=== PATIENT | female | born 1945 | race Caucasian/White ===

== ENCOUNTER → 2017-05-08 16:48 | Outpatient (CLI) | payer MEDICARE, SELFPAY ==
[2017-05-08 18:39] LABS: Absolute Lymphocyte Count 1.78 X10^3/ul (0.83-4.51); Absolute Neutrophil Count 2.7 X10^3/uL (2.0-7.7); Basophil# 0.01 X10^3/uL; Basophil% 0.2 % (0-1); Eosinophil# 0.13 X10^3/uL; Eosinophils% 2.5 % (0-5); Hemoglobin 11.9 g/dl (12.0-15.0); Lymphocyte # 1.78 X10^3/ul (4.0); Lymphocyte % 34.6 % (19-41); Mean Corp Hgb Conc 33.1 g/gl (32-36); Mean Corpuscular Hgb 29.1 pg (27.0-32.0); Mean Platelet Vol. 9.9 fl (6.2-12.0); Monocyte# 0.48 X10^3/uL; Monocyte% 9.3 % (0-10); Neutrophil # 2.74 X10^3/uL (2.7-7.7); Neutrophil % 53.2 % (47-70); Platelet Count 213 K/mm3 (150-450); RBC Distribution Width CV 13.9 % (11.6-14.6); RBC Distribution Width SD 43.8 fl (35.1-43.9); Red Blood Count 4.09 M/mm3 (4.2-5.4); White Blood Count 5.2 K/mm3 (4.4-11.0)
[2017-05-08 18:40] LABS: ALB/GLOB Ratio 0.9 RATIO (0.9-2.4); AST(SGOT) 23 U/L (15-37); Alanine Aminotransfer ALT/SGPT 27 U/L (13-56); Albumin, Serum 3.5 g/dL (3.2-5.0); Alkaline Phosphatase 71 U/L (45-117); Anion Gap 7 (5-15); BUN 24 mg/dL (7-18); BUN/Creat Ratio 21.8 RATIO (10-20); Calcium,Total 8.6 mg/dL (8.5-10.1); Chloride 107 mmol/L (98-107); EST Glomerular Filtration Rate 52 mL/min (>60); Est Glom Filt Rate - Afr Amer 63 mL/min (>60); Globulin 3.9 g/dL (2.2-4.2); Glucose 90 mg/dL (74-106); POSITIVE COUNT NO; POSITIVE DIFFERENTIAL NO; POSITIVE MORPHOLOGY NO; Potassium 4.2 mmol/L (3.5-5.1); Protein, Total 7.4 g/dL (6.4-8.2); Sodium Level 141 mmol/L (136-145)
== END ==
PROVIDERS: Family Provider Family Medicine; PCP Family Medicine; Visit Provider Internal Medicine Rheumatology
DX: M06.4 Inflammatory polyarthropathy (principal); R76.8 Other specified abnormal immunological findings in serum; M15.9 Polyosteoarthritis, unspecified; K21.9 Gastro-esophageal reflux disease without esophagitis; M50.30 Other cervical disc degeneration, unspecified cervical region; I10 Essential (primary) hypertension
CPT/HCPCS: 36415; 80053; 85025

== ENCOUNTER → 2017-08-01 09:54 | Outpatient (CLI) | payer MEDICARE, SELFPAY ==
[2017-08-01 11:40] LABS: ALB/GLOB Ratio 0.9 RATIO (0.9-2.4); AST(SGOT) 17 U/L (15-37); Alanine Aminotransfer ALT/SGPT 24 U/L (13-56); Albumin, Serum 3.5 g/dL (3.2-5.0); Alkaline Phosphatase 63 U/L (45-117); Anion Gap 8 (5-15); BUN 23 mg/dL (7-18); BUN/Creat Ratio 23.7 RATIO (10-20); Calcium,Total 8.9 mg/dL (8.5-10.1); Chloride 108 mmol/L (98-107); Cholesterol 161 mg/dL (200); Creatinine, Serum 0.97 mg/dL (0.55-1.02); EST Glomerular Filtration Rate 60 mL/min (>60); Est Glom Filt Rate - Afr Amer 73 mL/min (>60); Glucose 100 mg/dL (74-106); High Density Lipoprotein 64 mg/dL; Potassium 4.4 mmol/L (3.5-5.1); Protein, Total 7.5 g/dL (6.4-8.2); Sodium Level 142 mmol/L (136-145); Triglycerides 46 mg/dL; Very Low Density Lipoprotein 9 mg/dL (5-40)
[2017-08-02 13:58] LABS: Hep C Antibodies <0.1 s/co ratio (0.0-0.9)
== END ==
PROVIDERS: Family Provider Family Medicine; PCP Family Medicine; Visit Provider Family Medicine
DX: Z13.220 Encounter for screening for lipoid disorders (principal); Z11.59 Encounter for screening for other viral diseases; I10 Essential (primary) hypertension
CPT/HCPCS: 36415; 80053; 80061; 86803

== ENCOUNTER → 2017-08-10 16:48 | Outpatient (CLI) | payer MEDICARE, SELFPAY ==
[2017-08-10 17:32] LABS: Absolute Neutrophil Count 3.6 X10^3/uL (2.0-7.7); Basophil# 0.02 X10^3/uL; Basophil% 0.3 % (0-1); Eosinophils% 3.2 % (0-5); Hematocrit 35.6 % (37-47); Hemoglobin 11.9 g/dl (12.0-15.0); Lymphocyte % 29.1 % (19-41); Mean Corp Hgb Conc 33.4 g/gl (32-36); Mean Corpuscular Hgb 29.9 pg (27.0-32.0); Mean Corpuscular Volume 89.4 fL (81-99); Mean Platelet Vol. 9.9 fl (6.2-12.0); Monocyte# 0.52 X10^3/uL; Monocyte% 8.4 % (0-10); Neutrophil # 3.62 X10^3/uL (2.7-7.7); Neutrophil % 58.7 % (47-70); Platelet Count 238 K/mm3 (150-450); RBC Distribution Width CV 14.4 % (11.6-14.6); RBC Distribution Width SD 46.6 fl (35.1-43.9); Red Blood Count 3.98 M/mm3 (4.2-5.4); White Blood Count 6.2 K/mm3 (4.4-11.0)
[2017-08-10 17:40] LABS: POSITIVE COUNT NO; POSITIVE DIFFERENTIAL NO; POSITIVE MORPHOLOGY NO
[2017-08-10 17:56] LABS: ALB/GLOB Ratio 0.9 RATIO (0.9-2.4); AST(SGOT) 21 U/L (15-37); Alanine Aminotransfer ALT/SGPT 21 U/L (13-56); Albumin, Serum 3.5 g/dL (3.2-5.0); Alkaline Phosphatase 69 U/L (45-117); Anion Gap 7 (5-15); BUN 30 mg/dL (7-18); BUN/Creat Ratio 25.2 RATIO (10-20); Calcium,Total 8.7 mg/dL (8.5-10.1); Chloride 106 mmol/L (98-107); Creatinine, Serum 1.19 mg/dL (0.55-1.02); EST Glomerular Filtration Rate 48 mL/min (>60); Est Glom Filt Rate - Afr Amer 58 mL/min (>60); Globulin 3.9 g/dL (2.2-4.2); Glucose 95 mg/dL (74-106); Potassium 4.1 mmol/L (3.5-5.1); Protein, Total 7.4 g/dL (6.4-8.2); Sodium Level 139 mmol/L (136-145)
== END ==
PROVIDERS: Family Provider Family Medicine; PCP Family Medicine; Visit Provider Internal Medicine Rheumatology
DX: M06.4 Inflammatory polyarthropathy (principal); R76.8 Other specified abnormal immunological findings in serum; M15.9 Polyosteoarthritis, unspecified; K21.9 Gastro-esophageal reflux disease without esophagitis; M50.30 Other cervical disc degeneration, unspecified cervical region; I10 Essential (primary) hypertension
CPT/HCPCS: 36415; 80053; 85025

== ENCOUNTER → 2017-08-24 18:44 | Outpatient (CLI) | payer MEDICARE, SELFPAY | PROVIDERS: Visit Provider Physician Assistant | DX: J02.9 Acute pharyngitis, unspecified (principal) | CPT/HCPCS: 87081 ==

== ENCOUNTER → 2018-01-04 16:35 | Outpatient (CLI) | payer MEDICARE, SELFPAY ==
[2017-08-24 16:31] VITALS: BMI 45.6
[2018-01-04 17:48] LABS: ALB/GLOB Ratio 0.9 RATIO (0.9-2.4); AST(SGOT) 21 U/L (15-37); Alanine Aminotransfer ALT/SGPT 24 U/L (13-56); Albumin, Serum 3.6 g/dL (3.2-5.0); Alkaline Phosphatase 74 U/L (45-117); Anion Gap 9 (5-15); BUN 26 mg/dL (7-18); BUN/Creat Ratio 25.5 RATIO (10-20); Calcium,Total 8.5 mg/dL (8.5-10.1); Chloride 102 mmol/L (98-107); Creatinine, Serum 1.02 mg/dL (0.55-1.02); EST Glomerular Filtration Rate 57 mL/min (>60); Est Glom Filt Rate - Afr Amer 69 mL/min (>60); Globulin 3.9 g/dL (2.2-4.2); Glucose 95 mg/dL (74-106); Potassium 4.1 mmol/L (3.5-5.1); Protein, Total 7.5 g/dL (6.4-8.2); Sodium Level 139 mmol/L (136-145)
[2018-01-04 17:56] LABS: Absolute Lymphocyte Count 2.16 X10^3/ul (0.83-4.51); Absolute Neutrophil Count 3.5 X10^3/uL (2.0-7.7); Basophil# 0.03 X10^3/uL; Basophil% 0.5 % (0-1); Eosinophil# 0.18 X10^3/uL; Eosinophils% 2.8 % (0-5); Hematocrit 35.5 % (37-47); Hemoglobin 11.7 g/dl (12.0-15.0); Lymphocyte # 2.16 X10^3/ul (4.0); Lymphocyte % 34.1 % (19-41); Mean Corpuscular Hgb 29.7 pg (27.0-32.0); Mean Corpuscular Volume 90.1 fL (81-99); Mean Platelet Vol. 9.9 fl (6.2-12.0); Monocyte# 0.46 X10^3/uL; Monocyte% 7.3 % (0-10); Neutrophil # 3.49 X10^3/uL (2.7-7.7); Platelet Count 226 K/mm3 (150-450); RBC Distribution Width CV 13.6 % (11.6-14.6); RBC Distribution Width SD 44.3 fl (35.1-43.9); Red Blood Count 3.94 M/mm3 (4.2-5.4); White Blood Count 6.3 K/mm3 (4.4-11.0)
[2018-01-04 18:23] LABS: POSITIVE COUNT NO; POSITIVE DIFFERENTIAL NO; POSITIVE MORPHOLOGY NO
== END ==
PROVIDERS: Family Provider Family Medicine; PCP Family Medicine; Referring Provider Internal Medicine Rheumatology; Visit Provider Internal Medicine Rheumatology
DX: M06.4 Inflammatory polyarthropathy (principal); R76.8 Other specified abnormal immunological findings in serum; M15.9 Polyosteoarthritis, unspecified; M25.512 Pain in left shoulder; K21.9 Gastro-esophageal reflux disease without esophagitis; M50.30 Other cervical disc degeneration, unspecified cervical region; I10 Essential (primary) hypertension
CPT/HCPCS: 36415; 80053; 85025

== ENCOUNTER → 2018-01-06 16:37 | Outpatient (CLI) | payer MEDICARE, SELFPAY ==
[2017-08-24 16:31] VITALS: BMI 45.6
[2018-01-06 17:29] LABS: Color, Urine Yellow (Yellow); Glucose, Dipstick Normal (Normal); Ketone-Dipstick Negative (Negative); Leukocyte Esterase-Dipstick Negative /ul (Negative); Nitrite-Dipstick Negative (Negative); Occult Blood-Urine Negative /ul (Negative); Protein-Dipstick Negative (Negative); Specific Gravity, Urine 1.015 (1.002-1.030); Urine Bilirubin Dipstick Negative (Negative); Urine Clarity Clear (Clear); Urine Urobilinogen Normal (Normal)
[2018-01-06 17:57] LABS: Protein, Urine (Random) 7.7 mg/dL (<11.9); Protein:Creat Ratio 155 mg/g CRE (0-200)
== END ==
PROVIDERS: Family Provider Family Medicine; PCP Family Medicine; Referring Provider Internal Medicine Rheumatology; Visit Provider Internal Medicine Rheumatology
DX: M06.4 Inflammatory polyarthropathy (principal); R76.8 Other specified abnormal immunological findings in serum; M25.512 Pain in left shoulder; K21.9 Gastro-esophageal reflux disease without esophagitis; M50.30 Other cervical disc degeneration, unspecified cervical region; I10 Essential (primary) hypertension
CPT/HCPCS: 81002; 82570; 84156

== ENCOUNTER → 2018-01-25 15:46 | Outpatient (CLI) | payer MEDICARE, SELFPAY ==
[2017-08-24 16:31] VITALS: BMI 45.6
--- NOTE | 2018-01-25 15:48 | BI_ITS ---
MAMMOGRAPHY - BILATERAL SCREENING REASON FOR EXAM: Female, 72 years old. Routine annual screening examination. PERTINENT HISTORY: Non-contributory. History of bilateral breast reduction surgery and implants. TECHNIQUE: Digital bilateral breast nicholas (3D mammographic acquisition) in the CC and MLO projections. 2-D mediolateral oblique (MLO) and craniocaudad (CC) views of both breasts were obtained. CAD: Full Field Digital Mammography with Computer Added Detection was performed. COMPARISON: Comparison is made with prior study dated April 10, 2016 and July 07, 2014. FINDINGS: Breast Composition: The breasts are almost entirely fatty. There are no dominant masses or suspicious calcifications. There is also evidence of stable shrinkage of the right breast implant. Stable appearance of the bilateral breast implants. Once again, there is deformity with shrinkage of the left breast implant with nodular appearance along its inferior medial aspect suggestive of rupture. No other significant abnormalities are identified. There has been no significant change since the prior study. BI/SCREENING MAMM (CAD), BILAT IMPRESSION: Stable bilateral screening mammogram. Yearly follow-up mammogram recommended. (A) ASSESSMENT CATEGORY: BIRADS Category 2: Benign. A letter regarding these results will be sent to the patient by the facility within 30 days. Approximately 10% of breast cancers are not detected by mammography. A normal mammogram should not delay biopsy of a clinically suspicious abnormality. [id number] Electronically Signed: Juwan Morgan MD at 9:04 EST Tel [phone], Service support ,
--- OUTSIDE RECORDS SUMMARY | 2018-03-14 00:48 | XMS RPT_ITS ---
:1945 Author Organization [place] Support Name Relationship Address Phone RC GEE Unavailable [address] + [place] [address] + [place] [address] R Unavailable Unavailable Unavailable GEERC Unavailable [address] + [place] [address] KARLA HUNTLEY Unavailable LESLIE [address]ALES + [place] [address] R Unavailable Unavailable Unavailable GEEDARIANARC Unavailable [address] + [place] [address] KARLA HUNTLEY Unavailable LESLIE ROSALES + [place] [address] R Unavailable Unavailable Unavailable GEE RC Unavailable [address] + [place] [address] KARLA HUNTLEY Unavailable LESLIE ROSALES + [place] [address] R Unavailable Unavailable Unavailable GEE RC Unavailable [address] + [place] [address] KARLA HUNTLEY Unavailable LESLIE ROSALES + [place] [address] R Unavailable Unavailable Unavailable GEE RC Unavailable [address] + [place] [address] KARLA HUNTLEY Unavailable LESLIE ROSALES + [place] [address] R Unavailable Unavailable Unavailable GEE RC Unavailable [address] + [place] [address] KARLA HUNTLEY Unavailable LESLIE ROSALES + [place] [address] R Unavailable Unavailable Unavailable GEE, RC Unavailable [address] + [place] [address] KARLA HUNTLEY Unavailable LESLIE ROSALES + [place] [address] R Unavailable Unavailable Unavailable GEE, RC Unavailable [address] + [place] [address] KARLA HUNTLEY Unavailable LESLIE ROSALES + [place] [address] R Unavailable Unavailable Unavailable Care Team Providers Name Role Phone Chalino Samuels Attending Unavailable Jonathan Adame Attending Unavailable Brown, Fidel Referring Unavailable Brown, Fidel Primary Care Unavailable Vellanki, Sophia Attending Unavailable Vellanki, Sophia Referring Unavailable Brown, Fidel Primary Care Unavailable Chalino Samuels Attending Unavailable Chalino Samuels Referring Unavailable Brown, Fidel Primary Care Unavailable Vellanki, Sophia Attending Unavailable [place]ell[place], Sophia Referring Unavailable Brown, Fidel Primary Care Unavailable Jonathan Adame Attending Unavailable Brown, Fidel Referring Unavailable Brown, Fidel Primary Care Unavailable Jonathan Adame Attending Unavailable Brown, Fidel Primary Care Unavailable Jonathan Adame Referring Unavailable Vellanki, Sophia Attending Unavailable [place], Sophia Referring Unavailable Chalino Samuels Primary Care Unavailable [place]ell[place], Sophia Attending Unavailable [place]ell[place], Sophia Referring Unavailable Chalino Samuels Primary Care Unavailable PROBLEMS PROBLEMS DATE TYPE CONDITION / CODE ATTENDING STATUS SOURCE 01/04/2018 Unknown I10 - Essential [place], Sophia Active [place] (primary) Community hypertension / Hospital I10(ICD-10) Repository 01/04/2018 Unknown M06.4 - Inflammatory Vellanki, 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 / Community M06.4(ICD-10) Hospital Repository 01/04/2018 Unknown R76.8 - Other Vellanki, Sophia Active [place] specified abnormal Community immunological Hospital findings in serum / Repository R76.8(ICD-10) 01/04/2018 Unknown M15.9 - Vellanki, 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, Community unspecified / Hospital M15.9(ICD-10) Repository 01/04/2018 Unknown K21.9 - Vellanki, Sophia Active [place] Gastro-esophageal [facility] reflux disease Hospital without esophagitis / Repository K21.9(ICD-10) 01/04/2018 Unknown M50.30 - Other Sophia Avalos Active [place] cervical disc Community degeneration, Hospital unspecified cervical Repository region / M50.30(ICD-10) 01/04/2018 Unknown M25.512 - Pain in Sophia Avalos Active [place] left shoulder / Community M25.512(ICD-10) Hospital Repository 09/29/2017 Unknown J02.9 - Acute Jonathan Adame Active [place] pharyngitis, [facility] unspecified / Hospital J02.9(ICD-10) Repository 08/01/2017 Unknown Z13.220 - Encounter Arvind Chelo [place] for screening for [facility] lipoid disorders / Hospital Z13.220(ICD-10) Repository 04/20/2017 Unknown R30.0 - Dysuria / Jonathan Adame Active [place] R30.0(ICD-10) [facility] Repository PROCEDURES PROCEDURES No Procedure Records FoundRESULTS RESULTS SCREENING MAMM (CAD), Observed: 01/25/2018 Status: F Source: [place] B[place] 3:49 PM [facility] [address] [place] [address] SCREENING MAMM (CAD), BILAT MR#: [id number] Acct: [id number] Name: SANGITA GEE Rep #: [id number] : 1945 F 72 From: Juwan Morgan MD PCP: Fidel Martinez DO Status: REG CLI Study: SCREENING MAMM (CAD), BILAT Date of Exam: 01/25/18 Exam# [id number] Ordering Dr: Chalino Samuels DO MAMMOGRAPHY - BILATERAL SCREENING REASON FOR EXAM: Female, 72 years old. Routine annual screening examination. PERTINENT HISTORY: Non-contributory. History of bilateral breast reduction surgery and implants. TECHNIQUE: Digital bilateral breast nicholas (3D mammographic acquisition) in the CC and MLO projections. 2-D mediolateral oblique (MLO) and craniocaudad (CC) views of both breasts were obtained. CAD: Full Field Digital Mammography with Computer Added Detection was performed. COMPARISON: Comparison is made with prior study dated April 10, 2016 and July 07, 2014. FINDINGS: Breast Composition: The breasts are almost entirely fatty. There are no dominant masses or suspicious calcifications. There is also evidence of stable shrinkage of the right breast implant. Stable appearance of the bilateral breast implants. Once again, there is deformity with shrinkage of the left breast implant with nodular appearance along its inferior medial aspect suggestive of rupture. No other significant abnormalities are identified. There has been no significant change since the prior study. BI/SCREENING MAMM (CAD), BILAT IMPRESSION: Stable bilateral screening mammogram. Yearly follow-up mammogram recommended. (A) ASSESSMENT CATEGORY: BIRADS Category 2: Benign. A letter regarding these results will be sent to the patient by the facility within 30 days. Approximately 10% of breast cancers are not detected by mammography. A normal mammogram should not delay biopsy of a clinically suspicious abnormality. [id number] Electronically Signed: Juwan Morgan MD at 9:04 EST Tel [phone], Service support , CC: Chalino Samuels DO; Fidel Martinez DO [employer]: Signed URINALYSIS, ROUTINE Collected: 01/06/2018 Status: F Source: [place] (DIPSTICK) 4:39 PM [facility] Order Comment: How was Urine Obtained? CLEAN CATCH TYPE CODE TESTS RESULT OUT OF RANGE REFERENCE UNITS LAB L400.3000 Yellow COLOR Normal Yellow LAB L400.3050 Clear Normal CLARITY Clear LAB L400.3200 Normal mg/dl Normal GLUCOSE, UR Normal LAB L400.3300 Negative mg/dL Normal BILIRUBIN URINE Negative LAB L400.3400 Negative mg/dl Normal KETONE UR Negative LAB L400.3465 1.002-1.030 Normal SP.GR. DIPSTX 1.015 LAB L400.3550 5.0 - 8.0 pH UR Normal 5.0 LAB L400.3600 Negative mg/dl PROT Normal DIPSTX Negative LAB L400.3700 Normal mg/dl Normal UROBILI Normal LAB L400.3750 Negative Normal NITRITE UR Negative LAB L400.3780 Negative /ul Normal OCCULT BLOOD-UR Negative LAB L400.3800 Negative /ul LEUK Normal ESTERASE Negative Performed By: #### L400.2010 #### [facility] [address] [facility] [place], [address] PROTEIN+CREATININE Collected: Status: F Source: [place] RATIO,URINE 01/06/2018 4:39 PM [facility] TYPE CODE TESTS RESULT OUT OF RANGE REFERENCE UNITS LAB L501.1200 NO RANGE EST. mg/dL Normal UR CREAT 49.80 LAB L501.1930 <11.9 mg/dL Normal 7.7 PROTEIN,UR.R AN. LAB L501.1940 0-200 mg/g CRE Normal PROT:CRE 155 RATIO Performed By: #### L501.0900 #### [facility] [address] [facility] [facility] [place], [address] COMPREHENSIVE METABOLIC Collected: 01/04/2018 Status: F Source: [place] PROFIL 4:43 PM [facility] TYPE CODE TESTS RESULT OUT OF RANGE REFERENCE UNITS LAB L501.0100 74-106 mg/dL Normal GLU 95 Result Comment: Please note revised GLUCOSE reference range effective 2017. LAB L501.1000 7-18 mg/dL High BUN 26 LAB L501.1100 0.55-1.02 mg/dL Normal CREAT,SERUM 1.02 Result Comment: The validity of the calculated GFR AND GFRAA in patients over 70 years has not been determined. Clinical correlation is essential. LAB L501.1110 >60 mL/min Low EST GFR 57 Result Comment: Non- GFR Calc LAB L501.1115 >60 mL/min Normal EST GFR - AA 69 Result Comment: GFR Calc LAB L501.1300 10-20 RATIO High BUN/CRE 25.5 LAB L501.1500 6.4-8.2 g/dL T Normal PROT 7.5 LAB L501.1800 3.2-5.0 g/dL Normal ALB 3.6 LAB L501.1950 2.2-4.2 g/dL Normal GLOB 3.9 LAB L501.2000 0.9-2.4 RATIO Normal A/G 0.9 LAB L501.2200 8.5-10.1 mg/dL CA Normal 8.5 LAB L501.4100 15-37 U/L Normal AST 21 LAB L501.4305 45-117 U/L Normal ALK P 74 LAB L501.4405 13-56 U/L Normal ALT 24 LAB L501.4600 0.20-1.00 mg/dL T Normal BILI 0.30 LAB L501.5300 136-145 mmol/L NA Normal 139 LAB L501.5600 3.5-5.1 mmol/L K Normal 4.1 LAB L501.5900 98-107 mmol/L CL Normal 102 LAB L501.6100 21.0-32.0 mmol/L Normal CO2 28.0 LAB L501.6200 5-15 Normal GAP 9 Performed By: #### L500.4050 #### [facility] [address], [address] CBC W/DIFF, AUTOMATED Collected: 01/04/2018 Status: F Source: [place] 4:43 PM [facility] TYPE CODE TESTS RESULT OUT OF RANGE REFERENCE UNITS LAB L100.1000 4.4-11.0 K/mm3 Normal WBC 6.3 LAB L100.1200 4.2-5.4 M/mm3 Low RBC 3.94 LAB L100.1300 12.0-15.0 g/dl Low HGB 11.7 LAB L100.1400 37-47 % Low HCT 35.5 LAB L100.1500 81-99 fL Normal MCV 90.1 LAB L100.1600 27.0-32.0 pg Normal MCH 29.7 LAB L100.1700 32-36 g/gl Normal MCHC 33.0 LAB L100.1810 11.6-14.6 % Normal RDW CV 13.6 LAB L100.1820 35.1-43.9 fl High RDW SD 44.3 LAB L100.1900 150-450 K/mm3 Normal PLT 226 LAB L100.2000 6.2-12.0 fl Normal MPV 9.9 LAB L100.2100 47-70 % Normal NEUT% 55.0 LAB L100.2200 19-41 % Normal LY% 34.1 LAB L100.2300 0-10 % Normal MONO% 7.3 LAB L100.2400 0-5 % Normal EO% 2.8 LAB L100.2500 0-1 % Normal BASO% 0.5 LAB L100.2550 0.0-0.9 % Normal IM GRAN % 0.300 Result Comment: IG% - Immature Granulocytes (promyelocytes, myelocytes and metamyelocytes) > 1% indicates that a LEFT SHIFT is Present. LAB L100.2620 2.0-7.7 X10 3/uL Normal Absolute Neut 3.5 LAB L100.2720 0.83-4.51 X10 3/ul Normal Absolute Lymph 2.16 Performed By: #### L100.0100 #### [facility] [address] [facility] [address] [place], [place], [address] Observed: 08/24/2017 Status: F Source: [place] CULTURE, R/O STREP A 6:45 PM [facility] DAPHNIE Culture No Group A Beta Streptococcus isolated. * This cultures intended use is to screen for Beta Streptococcus A only. All other pathogens and potential pathogens will not be screened for or reported. If a complete workup of all potential pathogens is indicated an order for a routine throat culture is required. Performed By: #### M100.010 #### [facility] [address] 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 Accompanied by: Allergies No Known Allergies Allergy (Verified 04/20/17 16:33) Medications hydroxychloroquine 200 mg tablet PO 30 Days #60 04/20/17 [History Confirmed 04/20/17] lisinopril 20 mg-hydrochlorothiazide 25 mg tablet PO 90 Days #90 04/20/17 [History Confirmed 04/20/17] PFSH Medical History Arthritis (Acute) Back pain (Acute) Difficulty balancing (Acute) Knee pain (Acute) SOB (shortness of breath) (Acute) Shoulder pain (Acute) Surgical History Carpal tunnel syndrome (Acute) History of hernia repair (Acute) History of hysterectomy (Acute) History of knee surgery (Acute) Hx of section (Acute) Family History Father Kidney disease Myocardial infarction Mother Cancer Social History Smoking Status: Never smoker alcohol intake: never HPI HPI Chief Complaint: Sore throat Details: SANGITA GEE, is a 72 F who presents to the office today for initial evaluation 2 day history of progressively worsening sore throat. Patient notes tenderness to swallow, though no difficulty with swallowing or drooling appreciated. Patient notes no complaints of fever, chills, sweats, rash, chest pain/shortness of breath, or cough. She is a non-smoker, noting no other members in her household with similar signs or symptoms. She notes no other associated symptoms and no other alleviating or aggravating factors. ROS Const Constitutional: No excessive sweating, chills, fever(s), night sweats or body ache Eyes Eyes: No change in vision ENT ENT: Positive for post nasal drip, sinus pressure and sore throat; no abnormal hearing, ear pain, ear discharge, ear pressure, hearing loss, tongue swelling, throat swelling or lip swelling Resp Respiratory: No cough, chest congestion or shortness of breath Cardio Cardiology: No excessive sweating, chest pain at rest, chest pain with exertion, shortness of breath, dyspnea on exertion, irregular heart rhythm, generalized swelling or leg pain with exertion Gastro GI: No abdominal pain, change in stool character, change in bowel habits, nausea/dyspepsia or vomiting Musc Musculoskeletal: No joint pain, back pain or limited range of motion Skin Skin: No rash Neuro Neurology: No abnormal hearing, abnormal speech or abnormal movements Endo Endocrine: No excessive sweating Aller/Imm Allergy/Immunologic: No tongue swelling, throat swelling or lip swelling Exam Const General: cooperative, healthy appearing, no acute distress, comfortable Nutritional Appearance: obese Orientation: alert, awake, oriented x3 HENMT Head: normal to inspection Ears: hearing grossly normal bilaterally, external ears normal, TM's normal bilaterally, EAC's normal Nose: external nose normal, nares normal, septum normal, no nasal discharge Face and sinus: normal facial exam, sinuses nontender, face symmetric Mouth: oral mucosae normal, lip normal, oropharynx normal, tongue normal Teeth and gingiva: gingiva normal, dentition normal Throat: uvula midline, posterior oropharynx normal, abnormal tonsil (Erythema; rapid strep test today negative) bilaterally, no postnasal drainage Eyes General: appearance normal, both eyes and all related structures Neck Neck: normal visual inspection, full ROM, no lymphadenopathy, no meningeal signs, supple Neck mass: No Thyroid: thyroid normal Lymphatic: no lymphadenopathy noted Chest Chest palpation AND inspection: normal inspection of the chest Resp Effort AND Inspection: normal respiratory effort, able to speak in complete sentences, symmetric chest movement, no cough Auscultation: Bilateral: Clear to Auscultation Cardio Palpation: normal PMI Rate: regular rate Rhythm: regular rhythm Heart Sounds: S1 normal, S2 normal, no gallops, no murmurs, no rubs Pulses: radial pulses present GI Inspection: normal to inspection Palpation: soft Skin General: no rashes or lesions noted Neuro General: alert, awake, oriented x3, gait normal Cognition: normal cognition Speech: speech normal Gait: normal gait Motor: muscle tone normal throughout Sensory Exam: no sensory deficits noted Psych Appearance: grossly normal Mental Status: mental status grossly normal Mood: congruent mood Affect: normal affect Speech and Movement: speech and movement normal Attitude: cooperative Thought Process: normal Thought Content: normal Judgment: judgment good Assessment AND Plan 1. Sore throat J02.9 Orders Orders: 2. Pharyngitis J02.9 Plan Clear fluids, rest, Advil/Tylenol, salt water gargles as needed for symptomatic relief. Patient aware today's rapid strep test was negative therefore culture sent out for further evaluation. Follow-up with PCP in 5-7 days should symptoms not improved, sooner should symptoms worsen or any other concerns develop. Patient states acknowledging understanding all the above. This note was generated with Userscoutation software. It may contain incorrect words, spelling, and punctuation that were not noted in checking the note before signing. Orders Orders: Coding Level of Care Code Off vis,est,level 3 Diagnoses Sore throat J02.9 Pharyngitis J02.9 08/24/17 0751 <Electronically signed by Jonathan QUINONEZ> Date Jonathan QUINONEZ Cosigner Signature: Date (if applicable) CC: CBC W/DIFF, AUTOMATED Collected: 08/10/2017 Status: F Source: [place] 4:55 PM [facility] TYPE CODE TESTS RESULT OUT OF RANGE REFERENCE UNITS LAB L100.1000 4.4-11.0 K/mm3 Normal WBC 6.2 LAB L100.1200 4.2-5.4 M/mm3 Low RBC 3.98 LAB L100.1300 12.0-15.0 g/dl Low HGB 11.9 LAB L100.1400 37-47 % Low HCT 35.6 LAB L100.1500 81-99 fL Normal MCV 89.4 LAB L100.1600 27.0-32.0 pg Normal MCH 29.9 LAB L100.1700 32-36 g/gl Normal MCHC 33.4 LAB L100.1810 11.6-14.6 % Normal RDW CV 14.4 LAB L100.1820 35.1-43.9 fl High RDW SD 46.6 LAB L100.1900 150-450 K/mm3 Normal PLT 238 LAB L100.2000 6.2-12.0 fl Normal MPV 9.9 LAB L100.2100 47-70 % Normal NEUT% 58.7 LAB L100.2200 19-41 % Normal LY% 29.1 LAB L100.2300 0-10 % Normal MONO% 8.4 LAB L100.2400 0-5 % Normal EO% 3.2 LAB L100.2500 0-1 % Normal BASO% 0.3 LAB L100.2550 0.0-0.9 % Normal IM GRAN % 0.300 Result Comment: IG% - Immature Granulocytes (promyelocytes, myelocytes and metamyelocytes) > 1% indicates that a LEFT SHIFT is Present. LAB L100.2620 2.0-7.7 X10 3/uL Normal Absolute Neut 3.6 LAB L100.2720 0.83-4.51 X10 3/ul Normal Absolute Lymph 1.80 Performed By: #### L100.0100 #### [facility] [address] [place], [address] COMPREHENSIVE METABOLIC Collected: 08/10/2017 Status: F [facility] TYPE CODE TESTS RESULT OUT OF RANGE REFERENCE UNITS LAB L501.0100 74-106 mg/dL Normal GLU 95 Result Comment: Please note revised GLUCOSE reference range effective 2017. LAB L501.1000 7-18 mg/dL High BUN 30 LAB L501.1100 0.55-1.02 mg/dL High CREAT,SERUM 1.19 Result Comment: The validity of the calculated GFR AND GFRAA in patients over 70 years has not been determined. Clinical correlation is essential. LAB L501.1110 >60 mL/min Low EST GFR 48 Result Comment: Non- GFR Calc LAB L501.1115 >60 mL/min Low EST GFR - AA 58 Result Comment: GFR Calc LAB L501.1300 10-20 RATIO High BUN/CRE 25.2 LAB L501.1500 6.4-8.2 g/dL T Normal PROT 7.4 LAB L501.1800 3.2-5.0 g/dL Normal ALB 3.5 LAB L501.1950 2.2-4.2 g/dL Normal GLOB 3.9 LAB L501.2000 0.9-2.4 RATIO Normal A/G 0.9 LAB L501.2200 8.5-10.1 mg/dL CA Normal 8.7 LAB L501.4100 15-37 U/L Normal AST 21 LAB L501.4305 45-117 U/L Normal ALK P 69 LAB L501.4405 13-56 U/L Normal ALT 21 LAB L501.4600 0.20-1.00 mg/dL T Normal BILI 0.30 LAB L501.5300 136-145 mmol/L NA Normal 139 LAB L501.5600 3.5-5.1 mmol/L K Normal 4.1 LAB L501.5900 98-107 mmol/L CL Normal 106 LAB L501.6100 21.0-32.0 mmol/L Normal CO2 26.0 LAB L501.6200 5-15 Normal GAP 7 Performed By: #### L500.4050 #### [facility] [address] [place], [address] COMPREHENSIVE METABOLIC Collected: 08/01/2017 Status: F Source: [place] [facility] 10:24 AM [facility] TYPE CODE TESTS RESULT OUT OF RANGE REFERENCE UNITS LAB L501.0100 74-106 mg/dL Normal GLU 100 Result Comment: Fasting Glucose result from 100 to 125 mg/dL suggests IMPAIRED HOMEOSTASIS per A.D.A. criteria. Please note revised GLUCOSE reference range effective 2017. LAB L501.1000 7-18 mg/dL High BUN 23 LAB L501.1100 0.55-1.02 mg/dL Normal CREAT,SERUM 0.97 Result Comment: The validity of the calculated GFR AND GFRAA in patients over 70 years has not been determined. Clinical correlation is essential. LAB L501.1110 >60 mL/min Normal EST GFR 60 Result Comment: Non- GFR Calc LAB L501.1115 >60 mL/min Normal EST GFR - AA 73 Result Comment: GFR Calc LAB L501.1300 10-20 RATIO High BUN/CRE 23.7 LAB L501.1500 6.4-8.2 g/dL T Normal PROT 7.5 LAB L501.1800 3.2-5.0 g/dL Normal ALB 3.5 LAB L501.1950 2.2-4.2 g/dL Normal GLOB 4.0 LAB L501.2000 0.9-2.4 RATIO Normal A/G 0.9 LAB L501.2200 8.5-10.1 mg/dL CA Normal 8.9 LAB L501.4100 15-37 U/L Normal AST 17 LAB L501.4305 45-117 U/L Normal ALK P 63 LAB L501.4405 13-56 U/L Normal ALT 24 LAB L501.4600 0.20-1.00 mg/dL T Normal BILI 0.60 LAB L501.5300 136-145 mmol/L NA Normal 142 LAB L501.5600 3.5-5.1 mmol/L K Normal 4.4 LAB L501.5900 98-107 mmol/L High CL 108 LAB L501.6100 21.0-32.0 mmol/L Normal CO2 26.0 LAB L501.6200 5-15 Normal GAP 8 Performed By: #### L500.4050, L500.4100 #### [facility] [address] [place], [place], [address] LIPID PROFILE Collected: 08/01/2017 Status: F Source: [place] 10:24 AM [facility] TYPE CODE TESTS RESULT OUT OF RANGE REFERENCE UNITS LAB L501.4900 200 mg/dL Normal CHOL 161 Result Comment: <200 mg/dL Desirable 200-240 mg/dL Borderline >240 mg/dL High Risk LAB L501.5000 mg/dL Normal TRIG 46 Result Comment: The drugs N-Acetylcysteine and Metamizole may falsely depress this assay. Serum Triglycerides Reference Interval Normal <150 mg/dL Borderline high 150 - 199 mg/dL High 200 - 499 mg/dL Very High > or = 500 mg/dL LAB L501.6400 mg/dL Normal HDL 64 Result Comment: The drugs N-Acetylcysteine and Metamizole may falsely depress this assay. Reference Range HDL <40 mg/dL Low HDL Cholesterol HDL >or= 60 mg/dL High HDL Cholesterol LAB L501.6500 0-130 mg/dL Normal LDL 88 LAB L501.6600 5-40 mg/dL Normal VLDL 9 Performed By: #### L500.4050, L500.4100 #### [facility] [address] [place], [place], [address] HEPATITIS C ANTIBODIES Collected: 08/01/2017 Status: F Source: [place] 10:24 AM [facility] TYPE CODE TESTS RESULT OUT OF RANGE REFERENCE UNITS LAB L3100.0650 0.0-0.9 s/co ratio Normal HEP C AB <0.1 Result Comment: Negative: < 0.8 Indeterminate: 0.8 - 0.9 Positive: > 0.9 The CDC recommends that a positive HCV antibody result be followed up with a HCV Nucleic Acid Amplification test (581431). Performed at: - [facility] [address] [id number] Tram Driver: Pastor Preston PhD, Phone: [phone] Performed By: #### L3100.0625 #### [facility] (refer to report for specific site) refer to report for address and phone number CBC W/DIFF, AUTOMATED Collected: 05/08/2017 Status: F Source: [place] 4:54 PM [facility] TYPE CODE TESTS RESULT OUT OF RANGE REFERENCE UNITS LAB L100.1000 4.4-11.0 K/mm3 Normal WBC 5.2 LAB L100.1200 4.2-5.4 M/mm3 Low RBC 4.09 LAB L100.1300 12.0-15.0 g/dl Low HGB 11.9 LAB L100.1400 37-47 % Low HCT 36.0 LAB L100.1500 81-99 fL Normal MCV 88.0 LAB L100.1600 27.0-32.0 pg Normal MCH 29.1 LAB L100.1700 32-36 g/gl Normal MCHC 33.1 LAB L100.1810 11.6-14.6 % Normal RDW CV 13.9 LAB L100.1820 35.1-43.9 fl Normal RDW SD 43.8 LAB L100.1900 150-450 K/mm3 Normal PLT 213 LAB L100.2000 6.2-12.0 fl Normal MPV 9.9 LAB L100.2100 47-70 % Normal NEUT% 53.2 LAB L100.2200 19-41 % Normal LY% 34.6 LAB L100.2300 0-10 % Normal MONO% 9.3 LAB L100.2400 0-5 % Normal EO% 2.5 LAB L100.2500 0-1 % Normal BASO% 0.2 LAB L100.2550 0.0-0.9 % Normal IM GRAN % 0.200 Result Comment: IG% - Immature Granulocytes (promyelocytes, myelocytes and metamyelocytes) > 1% indicates that a LEFT SHIFT is Present. LAB L100.2620 2.0-7.7 X10 3/uL Normal Absolute Neut 2.7 LAB L100.2720 0.83-4.51 X10 3/ul Normal Absolute Lymph 1.78 Performed By: #### L100.0100 #### [facility] [address] [place], [place], [address] COMPREHENSIVE METABOLIC Collected: 05/08/2017 Status: F Source: [place] 4:54 PM [facility] TYPE CODE TESTS RESULT OUT OF RANGE REFERENCE UNITS LAB L501.0100 74-106 mg/dL Normal GLU 90 Result Comment: Please note revised GLUCOSE reference range effective 2017. LAB L501.1000 7-18 mg/dL High BUN 24 LAB L501.1100 0.55-1.02 mg/dL High CREAT,SERUM 1.10 Result Comment: The validity of the calculated GFR AND GFRAA in patients over 70 years has not been determined. Clinical correlation is essential. LAB L501.1110 >60 mL/min Low EST GFR 52 Result Comment: Non- GFR Calc LAB L501.1115 >60 mL/min Normal EST GFR - AA 63 Result Comment: GFR Calc LAB L501.1300 10-20 RATIO High BUN/CRE 21.8 LAB L501.1500 6.4-8.2 g/dL T Normal PROT 7.4 LAB L501.1800 3.2-5.0 g/dL Normal ALB 3.5 LAB L501.1950 2.2-4.2 g/dL Normal GLOB 3.9 LAB L501.2000 0.9-2.4 RATIO Normal A/G 0.9 LAB L501.2200 8.5-10.1 mg/dL CA Normal 8.6 LAB L501.4100 15-37 U/L Normal AST 23 LAB L501.4305 45-117 U/L Normal ALK P 71 LAB L501.4405 13-56 U/L Normal ALT 27 Result Comment: Please note revised ALT reference range effective 2017. LAB L501.4600 0.20-1.00 mg/dL Normal T BILI 0.30 LAB L501.5300 136-145 mmol/L Normal NA 141 LAB L501.5600 3.5-5.1 mmol/L Normal K 4.2 LAB L501.5900 98-107 mmol/L Normal CL 107 LAB L501.6100 21.0-32.0 mmol/L Normal CO2 27.0 LAB L501.6200 5-15 Normal GAP 7 Performed By: #### L500.4050 #### [facility] [address] [place], [place], [address] URGENT CARE VISIT Observed: 04/20/2017 Status: F Source: VY REPORT 4:56 PM [facility] [address] [place] [address] [address] [place] [address] OFFICE VISIT Date of Service: 04/20/17 MR#: [id number] Acct: [id number] Name: SANGITA GEE Rep #: [id number] : 1945 Provider: Jonathan QUINONEZ Age/Sex: 71/F Location: [facility] Status: Signed Intake Vital Signs04/20/17 Height 5 ft Intake Visit Reasons: Urinary tract infection Chief Complaint: Dysuria, urinary frequency Is patient in pain?: No Allergies No Known Allergies Allergy (Verified 04/20/17 16:33) Medications hydroxychloroquine 200 mg tablet PO 30 Days #60 04/20/17 [History Confirmed 04/20/17] lisinopril 20 mg-hydrochlorothiazide 25 mg tablet PO 90 Days #90 04/20/17 [History Confirmed 04/20/17] nitrofurantoin monohydrate/macrocrystals 100 mg capsule 100 mg PO Q12H 5 Days #10 cap 04/20/17 [Rx Confirmed 04/20/17] PFSH Medical History Arthritis (Acute) Back pain (Acute) Difficulty balancing (Acute) Knee pain (Acute) SOB (shortness of breath) (Acute) Shoulder pain (Acute) Surgical History Carpal tunnel syndrome (Acute) History of hernia repair (Acute) History of hysterectomy (Acute) History of knee surgery (Acute) Hx of section (Acute) Family History Father Kidney disease Myocardial infarction Mother Cancer Social History Smoking Status: Never smoker alcohol intake: never HPI HPI Chief Complaint: Dysuria, urinary frequency Details: SANGITA GEE, is a 71 F who presents to the office today for initial evaluation approximately 1 week history of progressively worsening dysuria and urinary frequency. Patient notes no complaints of fever, chills, sweats, or back pain. She notes taking [id number] Azo for symptomatic relief which helps somewhat. She notes having a urinary tract infection last in 2014, recalling that she was prescribed Macrobid at that time which helped her significantly. She notes no other complaints at this time. ROS Const Constitutional: No chills, fever(s), night sweats, body ache, abnormal sleep pattern or excessive sweating Eyes Eyes: No change in vision ENT ENT: No ear pain Resp Respiratory: No shortness of breath Cardio Cardiology: No excessive sweating, chest pain at rest, chest pain with exertion, shortness of breath, dyspnea on exertion, irregular heart rhythm, generalized swelling or leg pain with exertion Gastro GI: No abdominal pain, change in stool character or change in bowel habits Genitourinary-Female: Positive for burning urination, urinary frequency and painful urination; no urinary urgency, urinary incontinence, difficulty urinating or blood in urine Musc Musculoskeletal: No joint pain, back pain or limited range of motion Skin Skin: No change in hair or sores Neuro Neurology: No abnormal speech or abnormal movements Psych Psychiatric: No abnormal sleep pattern Endo Endocrine: No change in body appearance, cold intolerance, heat intolerance or excessive sweating Aller/Imm Allergy/Immunologic: No food intolerance Alex/Lymp Hematologic/Lymphatic: No easy bruising Exam Const General: cooperative, healthy appearing, no acute distress Nutritional Appearance: average body habitus, obese Orientation: alert, awake, oriented x3 HENMT Head: normal to inspection Ears: hearing grossly normal bilaterally Nose: external nose normal Eyes General: appearance normal, both eyes and all related structures Neck Neck: normal visual inspection, full ROM Lymphatic: no lymphadenopathy noted Chest Chest palpation AND inspection: normal inspection of the chest Resp Effort AND Inspection: normal respiratory effort, able to speak in complete sentences, symmetric chest movement, no cough Auscultation: Bilateral: Clear to Auscultation Cardio Palpation: normal PMI Rate: regular rate Rhythm: regular rhythm Heart Sounds: S1 normal, S2 normal, no gallops, no murmurs, no rubs Pulses: radial pulses present GI Inspection: normal to inspection Palpation: soft General: No CVA tenderness, other (See urinalysis dip result) Skin General: no rashes or lesions noted Neuro General: alert, awake, oriented x3, gait normal Cognition: normal cognition Speech: speech normal Gait: normal gait Motor: muscle tone normal throughout Sensory Exam: no sensory deficits noted Extrem General: normal to inspection Psych Appearance: grossly normal Mental Status: mental status grossly normal Mood: congruent mood Affect: normal affect Speech and Movement: speech and movement normal Attitude: cooperative Thought Process: normal Thought Content: normal Judgment: judgment good Results BMSUA Office Urine Color Yellow Last Edit by Coni Simons on 04/20/17 16:52 Office Urine Clarity Clear Last Edit by Coni Simons on 04/20/17 16:52 Assessment AND Plan 1. Urinary tract infection N39.0 Plan Detail Other Orders Orders: Other Medications New: nitrofurantoin monohyd/m-cryst 100 mg (Macrobid) administer [id number] mg PO Q12H 5 days a meal/food; swallow whole; do not open, crush, dissolve , or chew Additional Comments Macrobid as prescribed today. Appropriate hygiene course today. Follow-up with PCP in 3-5 days should symptoms not improve, sooner should symptoms worsen or any other concerns develop. Patient states knowledge and understanding all the above. This note was generated with Userscoutation software. It may contain incorrect words, spelling, and punctuation that were not noted in checking the note before signing. Coding Level of Care Code Off vis,new,level 3 Diagnoses Urinary tract infection N39.0 04/20/17 1656 <Electronically signed by Jonathan QUINONEZ> Date Jonathan QUINONEZ Cosigner Signature: Date (if applicable) CC: PROGRESS Observed: 03/26/2017 Status: COMPLETED Source: [address] 7:21 PM [facility] REPOSITORY HNO ID: [id number] Author: Kaya Bullard (Tactical Air Control Party Manager) Gomelly Service: (none) Author Type: Nurse Practitioner Type: Progress Notes Filed: 03/26/2017 7:30 PM Note Text: HPI HPI Sangita Gee is a 71 year old female who presents today for CC of cough, runny nose, chills and fatigue This started 4-5 days ago She did have the flu shot she has tried tylenol There is no problem list on file for this patient. BP 132/84 Pulse 68 Temp 36.2 ?C (97.1 ?F) (Tympanic) Resp 16 Wt 113.4 kg (250 lb) SpO2 98% ALLERGIES No Known Allergies Current Outpatient Prescriptions: hydroxychloroquine (PLAQUENIL) 200 mg tablet Take 200 mg by mouth twice daily. Disp: Rfl: 2 lisinopril-hydrochlorothiazide (PRINZIDE, ZESTORETIC) 20-25 mg per tablet Take 1 tablet by mouth once daily. Disp: Rfl: 1 No current facility-administered medications for this visit. Review of Systems Constitutional: Positive for chills and malaise/fatigue. Negative for diaphoresis and fever. HENT: Positive for congestion. Negative for ear pain and sore throat. Respiratory: Positive for cough. Negative for shortness of breath and wheezing. Gastrointestinal: Negative for abdominal pain, diarrhea, nausea and vomiting. Musculoskeletal: Negative for joint pain and myalgias. Skin: Negative for itching and rash. Neurological: Negative for weakness and headaches. Physical Exam Constitutional: She is oriented to person, place, and time and well-developed, well-nourished, and in no distress. HENT: Head: Normocephalic and atraumatic. Right Ear: Ear canal normal. A middle ear effusion (serous) is present. Left Ear: Ear canal normal. A middle ear effusion (serous) is present. Nose: Mucosal edema and rhinorrhea (clear) present. Right sinus exhibits no maxillary sinus tenderness and no frontal sinus tenderness. Left sinus exhibits no maxillary sinus tenderness and no frontal sinus tenderness. Mouth/Throat: Uvula is midline, oropharynx is clear and moist and mucous membranes are normal. Normal dentition. No oropharyngeal exudate or tonsillar abscesses. Eyes: Conjunctivae and EOM are normal. Pupils are equal, round, and reactive to light. Neck: Normal range of motion. Neck supple. Cardiovascular: Normal rate, regular rhythm and normal heart sounds. Pulmonary/Chest: Effort normal and breath sounds normal. No respiratory distress. Lymphadenopathy: Head (right side): No submental, no submandibular, no tonsillar, no preauricular, no posterior auricular and no occipital adenopathy present. Head (left side): No submental, no submandibular, no tonsillar, no preauricular, no posterior auricular and no occipital adenopathy present. She has no cervical adenopathy. Neurological: She is alert and oriented to person, place, and time. Gait normal. Skin: Skin is warm and dry. Psychiatric: Affect normal. Nursing note and vitals reviewed. ASSESSMENT/PLAN: 1. Viral illness - ICD9: 079.99, ICD10: B34.9 (primary diagnosis) - Discussed viral etiology and rationale for treatment. - Symptomatic treatment with prn analgesia - Supportive care with fluids and rest 2. Bilateral acute serous otitis media, recurrence not specified - ICD9: 381.01, ICD10: H65.03 - Supportive care with plenty of fluids, rest, and analgesia prn. - Follow up in one week if symptoms persist or worsen. - FLUTICASONE 50 MCG/ACTUATION NASAL SPRAY,SUSPENSION Kaya Barros CNP ALLERGIES ALLERGIES DATE TYPE / CODE NAME / CODE REACTION SEVERITY SOURCE 04/20/2017 Drug No Known Unknown [facility] Allergy/416 Allergies/O34270 [facility] 107201(SNOM 0388(RXNORM) Repository ED CT) Drug NO KNOWN [facility] Class/40481 ALLERGIES [facility] 1003(SNOMED Repository CT) ENCOUNTERS ENCOUNTERS ADMIT/DISCHARGE ACCOUNT ADMITTING ENCOUNTER LOCATION SOURCE NUMBER CLASS 01/25/2018 [id number] Ambulatory [facility] ing:OPBI Repository 01/06/2018 [id number] Ambulatory [facility] ing:LABSPEC Repository 01/04/2018 [id number] Ambulatory [facility] ing:MTLAB Repository 08/24/2017 [id number] Ambulatory [facility] ing:LABSPEC Repository 08/24/2017/08/25/19 [id number] Ambulatory BMS[facility]:B [place] [address] [facility] Repository 08/10/2017 [id number] Ambulatory [facility] ing:MTLAB Repository 08/01/2017 [id number] Ambulatory [facility] ing:LAB Repository 05/08/2017 [id number] Ambulatory [facility] ing:MTLAB Repository 04/20/2017/04/21/19 [id number] Ambulatory BMSBuilding:B [place] [address] [facility] Repository 03/26/2017/03/27/[id number] Repository PAYERS PAYERS ENCOUNTER GUARANTOR PAYER SUBSCRIBER SOURCE 01/25/2018 SANGITA García Primary SANGITA García [place] [id number] Insurance:LLUVIAISABEL GEEB: [place], [place] MEDICARE OPolicy [id number] Hospital 78921Xje: [phone]) Number: Repository [phone] () [id number] Date:9658-99-24UM [address] [place] [address] 91392CC: 01/25/2018 Secondary NOT GIVENUNK Vy Insurance:SELF PAY [facility] Number: Effective Repository Date:2017-12-10 01/06/2018 SANGITA M Primary SANGITA M [id number] Insurance:SVEN TRANB: [place], [place] MEDICARE [facility] [id number] [id number]: [phone]) Number: Repository [phone] () [id number] Date:9031-59-47DP [address] [place] [address] 11210EU: 01/06/2018 Secondary NOT GIVENUNK [place] Insurance:SELF PAY [facility] Number: Effective Repository Date:2018-01-06 01/04/2018 SANGITA M Primary SANGITA M [id number] Insurance:SVEN TRANB: [place] MEDICARE [facility] [id number] Hospital 25594Snx: [phone]) Number: Repository [phone] () [id number] Date:6123-91-88XA [address] [place] [address] 20785ZM: 01/04/2018 Secondary NOT GIVENUNK Vy Insurance:SELF PAY [facility] Number: Effective Repository Date:2018-01-04 08/24/2017 SANGITA M Primary SANGITA M [place] [id number] Insurance:ANTHISABEL CARRB: [place] MEDICARE [facility] [id number] Hospital 81860Pyj: (330) Number: Repository [phone] () [id number] Date:6103-70-94PT [address] [place] [address] [id number]: 08/24/2017 Secondary NOT GIVENUNK [place] Insurance:SELF PAY [facility] Number: Effective Repository Date:2017-08-24 08/24/2017 SANGITA M Primary SANGITA M [id number] Insurance:ANTHEM CARRDOB: [place] OPolicy [id number] [address]Tel: (330) Number: Repository [phone] () [id number] Date:7601-50-35CJ [address] [place] [address] 74766HK: 08/24/2017 Secondary NOT GIVENUNK [place] Insurance:SELF PAY [facility] Number: Effective Repository Date:2017-08-24 08/10/2017 RC ADLER Primary SANGITA M [place] [address] Insurance:ANTHEM CARRDOB: [place] OPolicy [id number] Hospital 448[address]Ynk: (330) Number: Repository [phone] () [id number] Date:7188-52-08AH [address] [place] [address] [id number]: 08/10/2017 Secondary NOT GIVENUNK Vy Insurance:SELF PAY [facility] Number: Effective Repository Date:2017-08-10 08/01/2017 RC SANTOS3 Primary SANGITA M [place] [address] Insurance:ANTHEM CARRDOB: [place] [facility] [facility] [facility] [id number] Hospital 44133Xhs: (330) Number: Repository [phone] () [id number] Date:0111-68-88FS [id number] [place] [address] [id number]: 08/01/2017 Secondary NOT GIVENUNK [place] Insurance:SELF PAY [facility] Number: Effective Repository Date:2017-08-01 05/08/2017 RC [id number] Primary SANGITA Mcclellan S [address] Insurance:SVEN SHEREEB: [place] PPOPolicy [id number] Hospital 10077Aik: [phone]) Number: Repository [phone] () [id number] Date:7860-73-93IG [address] [place] [address]XA: 05/08/2017 Secondary NOT GIVENUNK Vy Insurance:SELF PAY [facility] Number: Effective Repository Date:2017-05-08 04/20/2017 RC [id number] Primary SANGITA Mcclellan [address] Insurance:SVEN TRANB: [place] PPOPolicy [id number] Hospital 51710Xxg: (330) Number: Repository [phone] () [id number] Date:5068-30-38SU [address] [place] [address]IT: 04/20/2017 Secondary NOT GIVENUNK [place] Insurance:SELF PAY [facility] Number: Effective Repository Date:2017-04-20
== END ==
PROVIDERS: PCP Family Medicine; Visit Provider Family Medicine
DX: Z12.31 Encounter for screening mammogram for malignant neoplasm of breast (principal)
CPT/HCPCS: 77063; 77067

== ENCOUNTER → 2018-04-16 14:38 | Outpatient (CLI) | payer MEDICARE, SELFPAY ==
[2018-04-15 14:57] VITALS: BMI 45.6
[2018-04-16 14:57] LABS: Red Blood Cells-Urine 0 SEEN /hpf (0-5)
[2018-04-16 15:44] LABS: Color, Urine Amber (Yellow); Glucose, Dipstick Normal (Normal); Ketone-Dipstick Negative (Negative); Leukocyte Esterase-Dipstick 100 /ul (Negative); Nitrite-Dipstick Positive (Negative); Occult Blood-Urine Negative /ul (Negative); Protein-Dipstick Negative (Negative); Specific Gravity, Urine 1.015 (1.002-1.030); Urine Clarity Clear (Clear); Urine Urobilinogen 4 mg/dl (Normal)
[2018-04-16 15:50] LABS: Urine Bilirubin Dipstick 3 mg/dL (Negative)
[2018-04-16 15:54] LABS: Bacteria RARE /hpf (None Seen); Hyaline Cast 0-5 SEEN /lpf (0-5); Mucous, Urine RARE /hpf (<or=2+); Squamous Epithelial Cells - UA 0-5 SEEN /hpf (5-10); White Blood Cells 5-10 SEEN /hpf (0-5)
== END ==
PROVIDERS: Family Provider Family Medicine; PCP Family Medicine; Referring Provider Physician Assistant Medical; Visit Provider Physician Assistant Medical
DX: N39.0 Urinary tract infection, site not specified (principal); R30.0 Dysuria
CPT/HCPCS: 81001; 87077; 87086; 87088; 87186

== ENCOUNTER → 2018-07-30 16:31 | Outpatient (CLI) | payer MEDICARE, SELFPAY ==
[2018-04-15 14:57] VITALS: BMI 45.6
[2018-07-30 17:37] LABS: Absolute Lymphocyte Count 1.75 X10^3/ul (0.83-4.51); Absolute Neutrophil Count 2.9 X10^3/uL (2.0-7.7); Basophil# 0.01 X10^3/uL; Basophil% 0.2 % (0-1); Eosinophil# 0.13 X10^3/uL; Eosinophils% 2.5 % (0-5); Hematocrit 34.2 % (37-47); Hemoglobin 11.2 g/dl (12.0-15.0); Lymphocyte # 1.75 X10^3/ul (4.0); Mean Corp Hgb Conc 32.7 g/gl (32-36); Mean Corpuscular Hgb 28.9 pg (27.0-32.0); Mean Corpuscular Volume 88.4 fL (81-99); Mean Platelet Vol. 9.8 fl (6.2-12.0); Monocyte# 0.38 X10^3/uL; Monocyte% 7.4 % (0-10); Neutrophil # 2.88 X10^3/uL (2.7-7.7); Neutrophil % 55.9 % (47-70); POSITIVE COUNT NO; POSITIVE DIFFERENTIAL NO; POSITIVE MORPHOLOGY NO; Platelet Count 218 K/mm3 (150-450); RBC Distribution Width CV 14.9 % (11.6-14.6); RBC Distribution Width SD 47.8 fl (35.1-43.9); Red Blood Count 3.87 M/mm3 (4.2-5.4); White Blood Count 5.2 K/mm3 (4.4-11.0)
[2018-07-30 17:50] LABS: ALB/GLOB Ratio 0.9 RATIO (0.9-2.4); AST(SGOT) 22 U/L (15-37); Alanine Aminotransfer ALT/SGPT 26 U/L (13-56); Albumin, Serum 3.4 g/dL (3.2-5.0); Alkaline Phosphatase 69 U/L (45-117); Anion Gap 9 (5-15); BUN 23 mg/dL (7-18); Calcium,Total 8.8 mg/dL (8.5-10.1); Chloride 105 mmol/L (98-107); Creatinine, Serum 0.92 mg/dL (0.55-1.02); EST Glomerular Filtration Rate 64 mL/min (>60); Est Glom Filt Rate - Afr Amer 77 mL/min (>60); Globulin 3.8 g/dL (2.2-4.2); Glucose 87 mg/dL (74-106); Potassium 4.1 mmol/L (3.5-5.1); Protein, Total 7.2 g/dL (6.4-8.2); Sodium Level 141 mmol/L (136-145)
== END ==
PROVIDERS: Family Provider Family Medicine; PCP Family Medicine; Referring Provider Internal Medicine Rheumatology; Visit Provider Internal Medicine Rheumatology
DX: M06.4 Inflammatory polyarthropathy (principal); R76.8 Other specified abnormal immunological findings in serum; M15.9 Polyosteoarthritis, unspecified; K21.9 Gastro-esophageal reflux disease without esophagitis; M50.30 Other cervical disc degeneration, unspecified cervical region; I10 Essential (primary) hypertension
CPT/HCPCS: 36415; 80053; 85025

== ENCOUNTER → 2019-01-15 09:33 | Outpatient (CLI) | payer MEDICARE, SELFPAY ==
[2019-01-10 15:46] VITALS: BMI 48.6
[2019-01-15 10:18] LABS: Erythrocyte Sedimentation Rate 27 mm/hr (0-30)
== END ==
PROVIDERS: Family Provider Family Medicine; PCP Family Medicine; Referring Provider Family Medicine; Visit Provider Family Medicine
DX: M06.9 Rheumatoid arthritis, unspecified (principal)
CPT/HCPCS: 36415; 85652

== ENCOUNTER → 2019-01-27 16:42 | Outpatient (CLI) | payer MEDICARE, SELFPAY ==
[2019-01-10 15:46] VITALS: BMI 48.6
--- NOTE | 2019-01-27 16:45 | BI_ITS ---
MAMMOGRAPHY - BILATERAL SCREENING REASON FOR EXAM: Female, 73 years old. Routine annual screening examination. PERTINENT HISTORY: Non-contributory. History of bilateral breast implants and reduction surgery. TECHNIQUE: Digital bilateral breast myron (3D mammographic acquisition) in the CC and MLO projections. 2-D mediolateral oblique (MLO) and craniocaudad (CC) views of both breasts were obtained. CAD: Full Field Digital Mammography with Computer Added Detection was performed. COMPARISON: Comparison is made with prior study dated January 25, 2018 and December 08, 2016. FINDINGS: Breast Composition: The breasts are almost entirely fatty. There are no dominant masses or suspicious calcifications. Once again, there is evidence of irregular shape and contour of the contracted left breast implant. Stable appearance of the right breast implant. No other significant abnormalities are identified. There has been no significant change since the prior study. BI/SCREEN MAMM (CAD) W/MYRON BILAT IMPRESSION: Stable bilateral screening mammogram. Yearly follow-up mammogram recommended. (A) ASSESSMENT CATEGORY: BIRADS Category 2: Benign. A letter regarding these results will be sent to the patient by the facility within 30 days. Approximately 10% of breast cancers are not detected by mammography. A normal mammogram should not delay biopsy of a clinically suspicious abnormality. [id number] Electronically Signed: Juwan Morgan, at 8:53 EST , Service support ,
== END ==
PROVIDERS: Family Provider Family Medicine; PCP Family Medicine; Referring Provider Family Medicine; Visit Provider Family Medicine
DX: Z12.31 Encounter for screening mammogram for malignant neoplasm of breast (principal)
CPT/HCPCS: 77063; 77067

== ENCOUNTER → 2019-05-18 06:54 | Outpatient (CLI) | payer MEDICARE, SELFPAY ==
[2019-05-04 16:05] VITALS: BMI 47.0
--- NOTE | 2019-05-18 06:55 | ECHOCS_ITS ---
Reason For Study: CHEST PAIN Procedure This was a 2D Doppler, Color Flow transthoracic echocardiogram. The study was technically difficult. Due to body habitus. Contrast injection was performed. Exam performed in department. Left Ventricle Normal LV size. Left ventricular systolic function is normal. The estimated ejection fraction is 60 %. Stage 1 diastolic dysfunction. No regional wall motion abnormalities noted. Right Ventricle Normal RV size. Normal systolic function. Atria The left atrium is mildly enlarged. Normal right atrium. Mitral Valve Normal mitral valve. Tricuspid Valve Normal tricuspid valve. Aortic Valve Normal aortic valve. Trisinus/trileaflet aortic valve. Pulmonic Valve Normal pulmonic valve. Great Vessels Normal aortic root. The pulmonary artery is normal size. Normal inferior vena cava. Pericardium/Pleural No pericardial effusion. Medication Diluted definity 2.5ml given slow IV push to enhance endocardial definition. MMode/2D Measurements & Calculations LVIDd: 5.2 cm IVSd: 1.1 cm LVOT diam: 2.0 cm LVIDs: 2.9 cm LVPWd: 1.1 cm RVDd: 3.3 cm FS: 44.6 % LVOT area: 3.1 cm2 Ao root diam: 3.3 cm LAV(MOD-bp): 85.9 ml LA A4 area: 23.9 cm2 LAV(MOD-bp) Indexed: 42.5 ml/m2 LAV(MOD-sp2): 83.9 ml LAV(MOD-sp4): 86.5 ml LA dimension(2D): 3.7 cm RA A4 area: 18.7 cm2 Time Measurements MV dec time: 0.18 sec Doppler Measurements & Calculations MV E max armin: 78.3 cm/sec Lat Peak E' Armin: 6.2 cm/sec Med Peak E' Armin: 7.5 cm/sec MV A max armin: 111.1 cm/sec E/E' lat: 12.6 E/E' med: 10.5 MV E/A: 0.70 Ao V2 max: 203.9 cm/sec LV V1 max: 142.6 cm/sec SV(LVOT): 115.9 ml Ao max P.6 mmHg LV V1 max P.1 mmHg Ao V2 mean: 144.7 cm/sec LV V1 mean P.2 mmHg Ao mean P.2 mmHg LV V1 mean: 109.9 cm/sec Ao V2 VTI: 49.5 cm LV V1 VTI: 37.1 cm VERITO(I,D): 2.3 cm2 VERITO(V,D): 2.2 cm2 PA V2 max: 81.7 cm/sec TR max armin: 248.8 cm/sec TR max P.8 mmHg Interpretation Summary Normal LV size. Left ventricular systolic function is normal. The estimated ejection fraction is 60 %. Stage 1 diastolic dysfunction. Contrast injection was performed. Ordering Physician: Adrian Keyes Referring Physician: Fidel Martinez Performed By: Farida Floyd, PATTI, RVT
--- NOTE | 2019-05-18 14:59 | STRESSREP ---
Stress Test Report Pharmacologic myocardial perfusion stress test. 73-year-old lady with a history of chest discomfort. Stress protocol: Resting EKG demonstrates normal sinus rhythm with a rate of 64 bpm normal intervals are noted resting blood pressure 730/80 2 mmHg. 0.4 mg of regadenoson was infused per usual protocol followed by rapid intravenous saline flush injection continuous EKG monitoring was performed. The maximum heart rate attained was 108 bpm which was 72% of maximum predicted heart rate the maximum workload was 1 metabolic equivalent. At rest there were no ST or T wave changes noted suggest ischemia peak infusion nonspecific ST-T wave changes were noted. No clinical angina was noted. Myocardial perfusion protocol. 15.0 mCi of technetium 99m sestamibi was injected at rest. 0.4 mg of regadenoson was infused per usual protocol peak infusion 44.8 mCi of technetium 99m sestamibi was injected stress images were obtained stress and rest images were reconstructed and compared in the short axis vertical and horizontal long axis. Gated images were also obtained Perfusion SPECT analysis: Review of the stress images demonstrate mildly reduced uptake of tracer noted in the mid anterior wall on the stress images. The rest of the lopez appear to be well perfused. The resting images demonstrate a moderate amount of improvement noted in the mid anterior wall suggesting moderate mid anterior ischemia. Gated SPECT analysis: The gated ejection fraction is 77%. Conclusion: Abnormal pharmacologic myocardial perfusion stress test with mild to moderate mid anterior ischemia. Preserved ejection fraction.
== END ==
PROVIDERS: PCP Family Medicine; Referring Provider Internal Medicine Cardiovascular Disease; Visit Provider Internal Medicine Cardiovascular Disease
DX: R07.9 Chest pain, unspecified (principal)
CPT/HCPCS: 78452; 93017; 93306; A9500; Q9957; A4216; C8929; J2785

== ENCOUNTER 2019-07-04 07:58 | Day surgery (SDC) | payer MEDICARE, SELFPAY ==
[2019-05-04 16:05] VITALS: BMI 47.0
[2019-06-21 16:56] VITALS: BMI 47.0
--- NOTE | 2019-06-29 12:10 | RAD_ITS ---
STUDY: X-RAY CHEST REASON FOR EXAM: Female, 73 years old. PRE CLSP, chest tightness on and off, abnormal stress test TECHNIQUE: PA and lateral views of the chest. COMPARISON: Comparison is made with prior study dated September 08, 2016. FINDINGS: Stable calcified 7 cm x 6.5 cm contracted prosthetic material in the left breast. Minimal increased markings at the left lung base suggestive of scarring. There is no demonstrated pleural abnormality. Normal size heart. Normal mediastinum and johnnie. Normal visualized pulmonary arteries. There is atherosclerotic calcification of the aortic arch with tortuosity. There are diffuse degenerative changes of the visualized thoracic spine. Normal visualized ribs, clavicles, and shoulders. There is no demonstrated abnormality of the visualized soft tissue structures of the upper abdomen. RAD/Chest PA and Lateral IMPRESSION: No change since prior study. Electronically Signed: Juwan Morgan, at 12:42 EDT , Service support ,
[2019-06-29 12:55] LABS: Absolute Neutrophil Count 3.8 X10^3/uL (2.0-7.7); Basophil# 0.03 X10^3/uL; Basophil% 0.5 % (0-1); Eosinophil# 0.11 X10^3/uL; Eosinophils% 1.8 % (0-5); Hematocrit 35.7 % (37-47); Hemoglobin 11.5 g/dL (12.0-15.0); Lymphocyte % 26.1 % (19-41); Mean Corp Hgb Conc 32.2 g/dL (32-36); Mean Corpuscular Volume 89.9 fL (81-99); Monocyte# 0.61 X10^3/uL; NRBC Flagged by Analyzer 0 % (0-5); Neutrophil # 3.76 X10^3/uL (2.7-7.7); Neutrophil % 61.3 % (47-70); Platelet Count 210 K/mm3 (150-450); RBC Distribution Width CV 14.2 % (11.6-14.6); RBC Distribution Width SD 46.6 fl (35.1-43.9); Red Blood Count 3.97 M/mm3 (4.2-5.4); White Blood Count 6.1 K/mm3 (4.4-11.0)
[2019-06-29 13:18] LABS: Anion Gap 6 (5-15); BUN 28 mg/dL (7-18); Calcium,Total 9.5 mg/dL (8.5-10.1); Chloride 105 mmol/L (98-107); EST Glomerular Filtration Rate 58 mL/min (>60); Est Glom Filt Rate - Afr Amer 70 mL/min (>60); Glucose 98 mg/dL (74-106); Potassium 4.4 mmol/L (3.5-5.1); Sodium Level 139 mmol/L (136-145)
[2019-06-29 13:20] LABS: ALB/GLOB Ratio 0.9 RATIO (0.9-2.4); AST(SGOT) 21 U/L (15-37); Alanine Aminotransfer ALT/SGPT 22 U/L (13-56); Albumin, Serum 3.5 g/dL (3.2-5.0); Alkaline Phosphatase 79 U/L (45-117); Anion Gap 6 (5-15); BUN 27 mg/dL (7-18); BUN/Creat Ratio 28.1 RATIO (10-20); Calcium,Total 9.4 mg/dL (8.5-10.1); Chloride 105 mmol/L (98-107); Creatinine, Serum 0.96 mg/dL (0.55-1.02); EST Glomerular Filtration Rate 61 mL/min (>60); Est Glom Filt Rate - Afr Amer 73 mL/min (>60); Globulin 3.8 g/dL (2.2-4.2); Glucose 97 mg/dL (74-106); Potassium 4.5 mmol/L (3.5-5.1); Protein, Total 7.3 g/dL (6.4-8.2); Sodium Level 139 mmol/L (136-145)
--- NOTE | 2019-07-01 10:03 | PCM.HP.BLA ---
History and Physical Date of Admission: 07/04/19 This is a 73-year-old female that presents here today for a diagnostic heart catheterization. She recently established with us for evaluation of her hypertension. During that evaluation she noted that she had chest discomfort and palpitations. She did undergo an echocardiogram in May 2019 which demonstrated an ejection fraction of 60% with stage I diastolic dysfunction. She had an abnormal pharmacologic myocardial perfusion stress test with mild to moderate mid anterior ischemia. Her diagnostic heart catheterization today is to evaluate this abnormal stress test. Intake Intake Visit Reasons: Amb Documentation Allergies No Known Allergies Allergy (Verified 07/01/19 10:02) Medications aspirin 81 mg tablet,delayed release 81 mg PO DAILY 01/10/19 [History Confirmed 07/01/19] benefiber probiotic PO 01/10/19 [History Confirmed 07/01/19] krill [id number]-abz-uw8-kyl-astax 1,500 mg-165 mg-67.5 mg capsule cap PO DAILY cap 01/10/19 [History Confirmed 07/01/19] qunol tumeric PO 01/10/19 [History Confirmed 07/01/19] lisinopril 20 mg-hydrochlorothiazide 25 mg tablet 1 tab PO DAILY 90 Days #90 tab 03/26/19 [Rx Confirmed 07/01/19] metoprolol succinate 25 mg tablet,extended release 24 hr 25 mg PO DAILY #30 tab 05/19/19 [Rx Confirmed 07/01/19] indomethacin 25 mg capsule 25 mg PO TID #90 cap 05/27/19 [Rx Confirmed 07/01/19] clopidogrel 75 mg tablet 75 mg PO DAILY #30 tab 06/22/19 [Rx Confirmed 07/01/19] [facility] Medical History Essential (primary) hypertension (Chronic) Rheumatoid arthritis (Chronic) Obesity (BMI 30-39.9) (Chronic) Arthritis (Chronic) Back pain (Chronic) Depression (Chronic) Difficulty balancing (Chronic) GERD (gastroesophageal reflux disease) (Chronic) Knee pain (Chronic) Shoulder pain (Chronic) SOB (shortness of breath) (Resolved) Urinary frequency (Inactive) Surgical History Carpal tunnel syndrome (Chronic) History of hernia repair (Resolved) History of hysterectomy (Resolved) History of knee surgery (Resolved) Hx of cardiac catheterization (Resolved 2003) Hx of section (Resolved) Hx of hemorrhoidectomy (Resolved 2001) Normal colonoscopy (Resolved) Family History Father Kidney disease Myocardial infarction, Onset Age: 68 Mother Cancer female reproductive cancer Social History Smoking Status: Never smoker alcohol intake: never substance use type: does not use what type of physical activity do you participate in: none ROS Const Const: Positive for fatigue and weakness; negative for headache(s), frequent falls, night sweats, daytime sleepiness or excessive sweating Eyes Eyes: Negative for blind spots, loss of peripheral vision, transient loss of vision, blurry vision or double vision ENT ENT: Negative for headache(s) or balance problems Cardio Chest Pain: No Palpitations: No Edema: None Muscle aches with walking: None Resp Respiratory: Positive for SOB with activity; negative for SOB at rest, SOB orthopnea\SOB lying down, Cough or paroxysmal nocturnal dyspnea GI GI: Negative nausea, vomiting, heartburn, bright, red blood in stools or black,tarry stools : Negative for hematuria Musc Musc: Negative for muscle aches/ myalgia, muscle weakness, joint pain or balance problems Skin Skin: Negative non-healing lesions, rash or unusual bruising Neuro Neuro: Positive for weakness; negative for frequent falls, headache(s), blurry vision or double vision Alex Hematologic/Lymphatic: Negative for easy bleeding or easy bruising Endo Endo: Positive for fatigue; negative for excessive sweating Psych Psych: Negative for anxiety or depression Allergy Allergy/Immunology: Negative for rash Cardiology Exam Const Appearance: cooperative, healthy appearing, no acute distress, well developed and well groomed Nutritional Appearance: average body habitus and well nourished Orientation: alert, awake and oriented x3 Head Head: normal to inspection, normocephalic and atraumatic Ears: hearing grossly normal bilaterally and external ears normal Nose: external nose normal, nares normal, nasal mucous membranes and turbinates normal, septum normal, no nasal discharge Face and Sinus: face symmetric Mouth: oral mucosae normal, tongue normal, oropharynx normal and moist mucous membranes Teeth and gingiva: dentition normal Throat: posterior oropharynx normal, tonsils normal and uvula midline Eyes General: appearance normal, both eyes and all related structures Eyelids: eyelids normal Conjunctivae: conjunctivae normal Pupils: PERRL, normal by confrontation and accommodation normal EOM: EOM intact bilaterally Neck Neck: normal visual inspection, trachea midline and no JVD JVD: +5 Carotids: normal carotid upstroke and bounding pulses Chest Chest inspection: normal inspection of the chest, symmetric chest movement and normal respiratory effort Auscultation: Bilateral: Clear to Auscultation Cardio Palpation: normal PMI Rate: regular rate Rhythm: regular rhythm Heart sounds: S1 normal, S2 normal and normal, physiologic split S2; negative rub, gallop or murmur GI GI: normal to inspection, soft, no hepatosplenomegaly and bowel sounds present Neuro General: alert, awake, oriented x3, gait normal, moves all extremities and no focal sensory deficit Skin Skin: no rashes or lesions noted Extremities Pulses: Normal: Right Femoral Pulse, Left Femoral Pulse, Right Dorsalis Pedis Pulse, Left Dorsalis Pedis Pulse, Right Posterior Tibial Pulse, Left Posterior Tibial Pulse, Right Radial Pulse, Left Radial Pulse Lower Extremity Edema: None: Bilateral Musculoskel Musculoskeletal: No joint tenderness Psych Psychological: normal affect Assessment & Plan Problems 1. Essential hypertension I10 2. Abnormal cardiovascular stress test R94.39 Plan - CRISTIANO Mitchell Patient will have diagnostic heart catheterization done today. Plan of care will be based upon findings of heart catheterization.
[2019-07-01 12:02] VITALS: BMI 47.0
--- NOTE | 2019-07-04 08:46 | EKG12_ITS ---
Test Reason : PRE CATH Blood Pressure : / mmHG Vent. 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
--- NOTE | 2019-07-04 10:47 | CL.D_ITS ---
Patient Name: GARCIA BENTLEY Study Date: 07/04/2019 Performing: Adrian Keyes MD Ht: 60 inches 152 cm : 1945 Wt: 240.6 lbs 109 kg Age: 73 Gender: female BSA: 2.01 PROCEDURE(S) PERFORMED TC76-VGN/COR CLINICAL PROFILE AND INDICATIONS Indications: Suspected CAD Heart Failure: None Stress/Imaging Date: 05/18/2019Stress Test with SPECT MPI: Positive Intermediate Risk CAD Presentations: Symptom unlikely to be ischemic. Symptom unlikely to be ischemic. CONCLUSIONS Normal coronary arteries Normal LV size, wall motion,and systolic function RECOMMENDATIONS Medical therapy DESCRIPTION OF PROCEDURE The patient arrived to the procedure lab. The risks and benefits of the procedure as well as a full d escription of our services here and current unavailability of surgical backup were fully explained to the patient and/or their significant other prior to the catheterization. The Timeout was completed, verifying the correct patient and procedure. The patient's procedural site was prepped and draped in the usual fashion. Local anesthetic was given subcutaneously to right radial region with Lidocaine 2% . Using a modified Seldinger technique, arterial access was obtained via the right radial artery, a 6 Fr sheath was inserted. Left Coronary Artery selective angiography was performed in multiple views u sing a 5 Fr. 4.0 Hillrose catheter. Right Coronary Artery selective angiography was then performed in mu ltiple views using a 5 Fr. 4.0 Hillrose catheter.The arterial sheath was pulled and a TR Band was applie d for hemostasis w/ 12ml air CORONARY ANGIOGRAPHY DOMINANCE: Right Dominant LEFT HEART ASSESSMENT Left Ventricular Ejection Fraction: by Echo 60 % Normal LV wall motion Normal Left Ventricular systolic function LEFT MAIN: Angiographically normal LEFT ANTERIOR DESCENDING ARTERY: Angiographically normal CIRCUMFLEX ARTERY: Angiographically normal RIGHT CORONARY ARTERY: Angiographically normal COMPLICATIONS No Complications PROCEDURE MEDICATIONS Fentanyl 50 mcg IV Versed 1 mg IV Oxygen: 2 L/min via nasal cannula Heparin diluted in 23cc Heparinized saline. Patient given 10cc IA of this solution. 07/04/2019 10:23: 39 Verapamil 2.5mg, Ntg 100mcgs, 2000 units of Heparin diluted in 23cc Heparinized saline. Patient give n 10cc IA of this solution. 07/04/2019 10:23:39 SUMMARY OF HEMODYNAMIC DATA Time AIR REST ECG 08:36:42 AO 104/84 (95) SA 10:26:23 Signed By Adrian Keyes MD On 07/04/2019 10:46:16 Adrian Keyes MD
== END 2019-07-04 13:05 | disposition home or self-care (01) ==
LOC: CLSP 07:59
PROVIDERS: PCP Family Medicine; Referring Provider Internal Medicine Cardiovascular Disease; Visit Provider Internal Medicine Cardiovascular Disease
DX: R07.89 Other chest pain (principal); R94.39 Abnormal result of other cardiovascular function study; I10 Essential (primary) hypertension; Z79.82 Long term (current) use of aspirin; Z82.49 Family history of ischemic heart disease and other diseases of the circulatory system; M06.9 Rheumatoid arthritis, unspecified; K21.9 Gastro-esophageal reflux disease without esophagitis; F32.9 Major depressive disorder, single episode, unspecified; E66.9 Obesity, unspecified; Z68.39 Body mass index [BMI] 39.0-39.9, adult
CPT/HCPCS: 36415; 71046; 80048; 80053; 85025; 93005; 93454; 99152; 99153; J7040; C1769; C1894; Q9967

== ENCOUNTER → 2020-02-14 10:15 | Outpatient (CLI) | payer MEDICARE, SELFPAY ==
[2020-02-13 17:47] VITALS: BMI 45.5
== END ==
PROVIDERS: PCP Family Medicine; Referring Provider Physician Assistant Surgical; Visit Provider Physician Assistant Surgical
DX: Z20.828 Contact with and (suspected) exposure to other viral communicable diseases (principal)
CPT/HCPCS: 87635; U0003

== ENCOUNTER → 2020-06-06 15:04 | Outpatient (CLI) | payer MEDICARE, SELFPAY ==
[2020-06-06 14:31] VITALS: BMI 44.8
[2020-06-06 16:46] LABS: Absolute Neutrophil Count 3.3 X10^3/uL (2.0-7.7); Basophil# 0.02 X10^3/uL; Basophil% 0.4 % (0-1); Eosinophil# 0.08 X10^3/uL; Eosinophils% 1.5 % (0-5); Hematocrit 36.7 % (37-47); Hemoglobin 11.7 g/dL (12.0-15.0); Lymphocyte % 27.8 % (19-41); Mean Corp Hgb Conc 31.9 g/dL (32-36); Mean Corpuscular Hgb 29.8 pg (27.0-32.0); Mean Corpuscular Volume 93.4 fL (81-99); Mean Platelet Vol. 10.8 fl (6.2-12.0); Monocyte# 0.43 X10^3/uL; NRBC Flagged by Analyzer 0 % (0-5); Neutrophil # 3.34 X10^3/uL (2.7-7.7); Neutrophil % 61.9 % (47-70); Platelet Count 227 K/mm3 (150-450); RBC Distribution Width CV 13.8 % (11.6-14.6); RBC Distribution Width SD 47.3 fl (35.1-43.9); Red Blood Count 3.93 M/mm3 (4.2-5.4); White Blood Count 5.4 K/mm3 (4.4-11.0)
[2020-06-06 17:07] LABS: ALB/GLOB Ratio 0.9 RATIO (0.9-2.4); AST(SGOT) 15 U/L (15-37); Alanine Aminotransfer ALT/SGPT 20 U/L (13-56); Albumin, Serum 3.7 g/dL (3.2-5.0); Alkaline Phosphatase 64 U/L (45-117); Anion Gap 7 (5-15); BUN 38 mg/dL (7-18); BUN/Creat Ratio 24.2 RATIO (10-20); Calcium,Total 9.3 mg/dL (8.5-10.1); Chloride 107 mmol/L (98-107); Creatinine, Serum 1.57 mg/dL (0.55-1.02); EST Glomerular Filtration Rate 34 mL/min (>60); Est Glom Filt Rate - Afr Amer 42 mL/min (>60); Globulin 4.1 g/dL (2.2-4.2); Glucose 105 mg/dL (74-106); Potassium 4.5 mmol/L (3.5-5.1); Protein, Total 7.8 g/dL (6.4-8.2); Sodium Level 138 mmol/L (136-145); Thyroid Stim Hormone (TSH) 1.39 uIU/mL (0.358-3.74)
== END ==
PROVIDERS: PCP Family Medicine; Referring Provider Family Medicine; Visit Provider Family Medicine
DX: R19.7 Diarrhea, unspecified (principal); I10 Essential (primary) hypertension
CPT/HCPCS: 36415; 80053; 84443; 85025

== ENCOUNTER → 2020-12-05 13:21 | Outpatient (CLI) | payer MEDICARE, SELFPAY ==
--- NOTE | 2020-12-05 13:23 | BI_ITS ---
MAMMOGRAPHY - BILATERAL SCREENING REASON FOR EXAM: Female, 75 years old. Routine annual screening examination. PERTINENT HISTORY: Non-contributory. TECHNIQUE: Digital bilateral breast myron (3D mammographic acquisition) in the CC and MLO projections. 2-D mediolateral oblique (MLO) and craniocaudad (CC) views of both breasts were obtained. CAD: Full Field Digital Mammography with Computer Added Detection was performed. COMPARISON: Comparison is made with prior study dated 01/27/2019 and 01/25/2018. FINDINGS: Breast Composition: The breasts are almost entirely fatty. There are no dominant masses or suspicious calcifications. Once again, bilateral breast implants are seen. The left breast implant has an irregular shape and contour with contraction. This is unchanged. Stable appearance of the right breast implant. No other significant abnormalities are identified. There has been no significant change since the prior study. BI/SCRN MAMM (CAD)W/MYRON BILAT IMPRESSION: Stable bilateral screening mammogram. Yearly follow-up mammogram recommended. (A) ASSESSMENT CATEGORY: BIRADS Category 2: Benign. A letter regarding these results will be sent to the patient by the facility within 30 days. Approximately 10% of breast cancers are not detected by mammography. A normal mammogram should not delay biopsy of a clinically suspicious abnormality. [id number] Electronically Signed: Juwan Morgan MD at 14:39 EDT , Service support ,
== END ==
PROVIDERS: PCP Family Medicine; Referring Provider Family Medicine; Visit Provider Family Medicine
DX: Z12.31 Encounter for screening mammogram for malignant neoplasm of breast (principal)
CPT/HCPCS: 77063; 77067

== ENCOUNTER → 2021-02-06 15:38 | Outpatient (CLI) | payer MEDICARE, SELFPAY ==
[2021-02-06 16:25] LABS: Mucous, Urine 0 SEEN /hpf (<or=2+); Red Blood Cells-Urine 0 SEEN /hpf (0-5)
[2021-02-06 17:13] LABS: Color, Urine Yellow (Yellow); Glucose, Dipstick Normal (Normal); Ketone-Dipstick Negative (Negative); Leukocyte Esterase-Dipstick 500 /ul (Negative); Nitrite-Dipstick Positive (Negative); Occult Blood-Urine 10 /ul (Negative); Protein-Dipstick Negative (Negative); Urine Bilirubin Dipstick Negative (Negative); Urine Clarity Sl. Cloudy (Clear); Urine Urobilinogen Normal (Normal)
[2021-02-06 17:18] LABS: Squamous Epithelial Cells - UA 5-10 SEEN /hpf (5-10); White Blood Cells 10-25 SEEN /hpf (0-5)
[2021-02-06 17:19] LABS: Bacteria 1+ /hpf (None Seen)
[2021-02-06 17:19] LABS: Absolute Lymphocyte Count 2.08 X10^3/uL (0.83-4.51); Absolute Neutrophil Count 4.1 X10^3/uL (2.0-7.7); Basophil# 0.03 X10^3/uL; Basophil% 0.4 % (0-1); Eosinophil# 0.12 X10^3/uL; Eosinophils% 1.7 % (0-5); Hematocrit 34.7 % (37-47); Hemoglobin 11.4 g/dL (12.0-15.0); Lymphocyte # 2.08 X10^3/ul (0.83-4.51); Lymphocyte % 29.4 % (19-41); Mean Corp Hgb Conc 32.9 g/dL (32-36); Mean Corpuscular Hgb 29.5 pg (27.0-32.0); Mean Corpuscular Volume 89.9 fL (81-99); Mean Platelet Vol. 9.9 fl (6.2-12.0); Monocyte# 0.72 X10^3/uL; Monocyte% 10.2 % (0-10); NRBC Flagged by Analyzer 0 % (0-5); Neutrophil % 57.9 % (47-70); Platelet Count 248 K/mm3 (150-450); RBC Distribution Width CV 13.4 % (11.6-14.6); RBC Distribution Width SD 43.8 fl (35.1-43.9); Red Blood Count 3.86 M/mm3 (4.2-5.4); White Blood Count 7.1 K/mm3 (4.4-11.0)
[2021-02-06 17:40] LABS: ALB/GLOB Ratio 0.9 RATIO (0.9-2.4); AST(SGOT) 20 U/L (15-37); Alanine Aminotransfer ALT/SGPT 24 U/L (13-56); Albumin, Serum 3.7 g/dL (3.2-5.0); Alkaline Phosphatase 67 U/L (45-117); Anion Gap 10 (5-15); BUN 37 mg/dL (7-18); BUN/Creat Ratio 25.2 RATIO (10-20); Calcium,Total 9.3 mg/dL (8.5-10.1); Chloride 103 mmol/L (98-107); Creatinine, Serum 1.47 mg/dL (0.55-1.02); EST Glomerular Filtration Rate 37 mL/min (>60); Est Glom Filt Rate - Afr Amer 45 mL/min (>60); Globulin 4.2 g/dL (2.2-4.2); Glucose 105 mg/dL (74-106); Potassium 4.5 mmol/L (3.5-5.1); Protein, Total 7.9 g/dL (6.4-8.2); Sodium Level 137 mmol/L (136-145)
== END ==
LOC: LABSPEC 15:39 → BIMLAB 16:24
PROVIDERS: PCP Family Medicine; Referring Provider Family Medicine; Visit Provider Family Medicine
DX: N18.1 Chronic kidney disease, stage 1 (principal); E66.9 Obesity, unspecified; N39.3 Stress incontinence (female) (male); Z68.30 Body mass index [BMI] 30.0-30.9, adult
CPT/HCPCS: 36415; 80053; 81001; 85025

== ENCOUNTER → 2021-12-06 | Outpatient (CLI) | payer MEDICARE, SELFPAY ==
--- NOTE | 2021-12-06 13:45 | BI_ITS ---
MAMMOGRAPHY - BILATERAL SCREENING 3-D TOMOSYNTHESIS REASON FOR EXAM: Female, 76 years old. Routine screening PERTINENT HISTORY: Previous reduction surgery and implants. TECHNIQUE: 2-D mammograms and 3-D Tomosynthesis of the breast (s) were performed. CAD was performed. COMPARISON: 12/05/2020 FINDINGS: The breast composition is almost entirely fat. Scattered benign calcifications are seen. No dense spiculated masses or suspicious microcalcifications are identified. No architectural distortion is identified. There is no skin thickening or retraction. The left breast implant shows some retraction of the implant with associated architectural distortion of the left breast. However this is stable and unchanged compared to the previous study. There has been no significant change since the prior study. BI/SCRN MAMM (CAD)W/MYRON BILAT IMPRESSION: No mammographic signs of malignancy. Routine yearly mammograms recommended. ASSESSMENT CATEGORY: BIRADS Category 2: Benign. A letter regarding these results will be sent to the patient by the facility within 30 days. FOLLOW UP RECOMMENDATION: Yearly follow up mammogram recommended. (A) Approximately 10% of breast cancers are not detected by mammography. A normal mammogram should not delay biopsy of a clinically suspicious abnormality. Electronically Signed: Broosk Agustin MD at 15:16 EDT ,
== END | disposition home or self-care (01) ==
LOC: OPBI 13:44
PROVIDERS: PCP Family Medicine; Visit Provider Family Medicine
DX: Z12.31 Encounter for screening mammogram for malignant neoplasm of breast (principal)
CPT/HCPCS: 77063; 77067

== ENCOUNTER → 2022-03-20 | Outpatient (CLI) | payer MEDICARE, SELFPAY ==
[2022-03-20 12:23] LABS: Absolute Lymphocyte Count 1.87 X10^3/uL (0.83-4.51); Absolute Neutrophil Count 3.5 X10^3/uL (2.0-7.7); Basophil# 0.04 X10^3/uL; Basophil% 0.7 % (0-1); Eosinophil# 0.15 X10^3/uL; Eosinophils% 2.4 % (0-5); Hematocrit 35.5 % (37-47); Hemoglobin 11.5 g/dL (12.0-15.0); Lymphocyte # 1.87 X10^3/ul (0.83-4.51); Lymphocyte % 30.5 % (19-41); Mean Corp Hgb Conc 32.4 g/dL (32-36); Mean Corpuscular Hgb 29.8 pg (27.0-32.0); Mean Platelet Vol. 10.1 fl (6.2-12.0); Monocyte% 8.2 % (0-10); NRBC Flagged by Analyzer 0 % (0-5); Neutrophil # 3.54 X10^3/uL (2.7-7.7); Neutrophil % 57.7 % (47-70); Platelet Count 259 K/mm3 (150-450); RBC Distribution Width CV 13.8 % (11.6-14.6); RBC Distribution Width SD 46.5 fl (35.1-43.9); Red Blood Count 3.86 M/mm3 (4.2-5.4); White Blood Count 6.1 K/mm3 (4.4-11.0)
[2022-03-20 13:26] LABS: AST(SGOT) 23 U/L (15-37); Alanine Aminotransfer ALT/SGPT 25 U/L (13-56); Albumin, Serum 3.9 g/dL (3.2-5.0); Alkaline Phosphatase 67 U/L (45-117); Anion Gap 8 (5-15); BUN 42 mg/dL (7-18); BUN/Creat Ratio 26.4 RATIO (10-20); Calcium,Total 9.7 mg/dL (8.5-10.1); Chloride 106 mmol/L (98-107); Cholesterol 217 mg/dL (200); Creatinine, Serum 1.59 mg/dL (0.55-1.02); EST Glomerular Filtration Rate 34 mL/min (>60); Est Glom Filt Rate - Afr Amer 41 mL/min (>60); Glucose 118 mg/dL (74-106); High Density Lipoprotein 66 mg/dL; Potassium 4.9 mmol/L (3.5-5.1); Protein, Total 7.9 g/dL (6.4-8.2); Sodium Level 139 mmol/L (136-145); Triglycerides 61 mg/dL; Very Low Density Lipoprotein 12 mg/dL (5-40)
== END | disposition home or self-care (01) ==
LOC: BIMLAB 11:13
PROVIDERS: PCP Family Medicine; Referring Provider Family Medicine; Visit Provider Family Medicine
DX: E66.9 Obesity, unspecified (principal); I10 Essential (primary) hypertension
CPT/HCPCS: 36415; 80053; 80061; 85025

== ENCOUNTER → 2022-06-03 | Outpatient (CLI) | payer MEDICARE, SELFPAY ==
[2022-06-03 15:43] LABS: Anion Gap 4 (5-15); BUN 38 mg/dL (7-18); BUN/Creat Ratio 24.8 RATIO (10-20); Chloride 106 mmol/L (98-107); Creatinine, Serum 1.53 mg/dL (0.55-1.02); EST Glomerular Filtration Rate 35 mL/min (>60); Est Glom Filt Rate - Afr Amer 43 mL/min (>60); Glucose 95 mg/dL (74-106); Potassium 4.8 mmol/L (3.5-5.1); Sodium Level 137 mmol/L (136-145)
== END | disposition home or self-care (01) ==
LOC: BIMLAB 14:02
PROVIDERS: PCP Family Medicine; Referring Provider Family Medicine; Visit Provider Family Medicine
DX: N18.1 Chronic kidney disease, stage 1 (principal)
CPT/HCPCS: 36415; 80048

== ENCOUNTER → 2022-11-18 | Outpatient (CLI) | payer MEDICARE, SELFPAY ==
--- NOTE | 2022-11-18 11:52 | RAD_ITS ---
STUDY: X-RAY - PELVIS AND LEFT HIP REASON FOR EXAM: Female, 77 years old. Left hip pain following a fall. TECHNIQUE: 3 views of the pelvis and hip. COMPARISON: None. FINDINGS: There is a non-specific bowel gas pattern. Normal visualized soft tissue structures. There is narrowing with cortical sclerosis and osteophyte formation of the sacroiliac joint consistent with degenerative osteoarthritic changes. Normal bilateral superior and inferior pubic rami. There are degenerative changes of the pubic symphysis with articular narrowing and sclerosis. Normal bilateral ischial tuberosities. Normal visualized femoral head. Normal acetabulum. Normal hip joint. Possible bursitis overlying the greater trochanter. RAD/HIP, UNI W/ Pelvis 2-3 Views IMPRESSION: Findings suggestive of bursitis overlying the greater trochanter. Electronically Signed: Juwan Morgan MD at 12:25 EDT ,
--- NOTE | 2022-11-18 11:55 | RAD_ITS ---
STUDY: X-RAY - LUMBAR SPINE REASON FOR EXAM: Female, 77 years old. Low back pain following a fall. TECHNIQUE: 2 view(s) of the lumbar spine were obtained. COMPARISON: None FINDINGS: Normal lumbar lordosis. There is a dextroscoliosis of the lumbar spine. There is a normal alignment of the vertebrae. There is multilevel endplate spondylosis of the lumbar vertebrae. There is multi-level degenerative disc disease with multi-level disc space narrowing. Facet joint osteoarthritis. Evidence of a ventral hernia repair. Focal calcification in the right hemipelvis most likely representing a phlebolith. RAD/Lumbar Spine 2 or 3 Views IMPRESSION: Degenerative changes of the spine, as detailed above. Mild dextroscoliosis. Electronically Signed: Juwan Morgan MD at 12:27 EDT ,
== END | disposition home or self-care (01) ==
LOC: MTRAD 11:52
PROVIDERS: PCP Family Medicine; Referring Provider Physician Assistant; Visit Provider Physician Assistant
DX: M25.552 Pain in left hip (principal); M54.50 Low back pain, unspecified
CPT/HCPCS: 72100; 73502

== ENCOUNTER → 2022-12-22 | Outpatient (CLI) | payer MEDICARE, SELFPAY ==
--- NOTE | 2022-12-22 15:17 | US_ITS ---
STUDY: RENAL ULTRASOUND - COMPLETE REASON FOR EXAM: Female, 77 years old. Family history of renal cancer TECHNIQUE: Ultrasound evaluation of the kidneys was performed with real-time and static quintana-scale imaging. COMPARISON: None. FINDINGS: RIGHT KIDNEY: Normal location of the right kidney, which is normal in size. The right kidney measures 8.3 cm x 5.1 cm x 4.3 cm. There is a normal cortex of the right kidney. The renal cortex measures 1.4 cm. There is no right renal mass or cyst. There are no right renal calculi. There is no right hydronephrosis. DISTAL RIGHT URETER: There is non-visualization of the distal right ureter. There is no demonstrated right ureterovesical junction calculus. There is no demonstrated right ureteral jet. LEFT KIDNEY: Normal location of the left kidney, which is normal in size. The left kidney measures 9.4 cm x 5.1 cm x 4.8 cm. There is a normal cortex of the left kidney. The renal cortex measures 1.3 cm. There is no left renal mass or cyst. There are no left renal calculi. There is no left hydronephrosis. DISTAL LEFT URETER: There is non-visualization of the distal left ureter. There is no demonstrated left ureterovesical junction calculus. There is no demonstrated left ureteral jet. BLADDER: The bladder was empty at the time of the examination. US/Kidney and Bladder IMPRESSION: Normal ultrasound of the kidneys. Electronically Signed: Juwan Morgan MD at 8:24 EST ,
== END | disposition home or self-care (01) ==
LOC: US 15:13
PROVIDERS: PCP Family Medicine; Visit Provider Family Medicine
DX: R31.9 Hematuria, unspecified (principal)
CPT/HCPCS: 76770

== ENCOUNTER → 2022-12-26 | Outpatient (CLI) | payer MEDICARE, SELFPAY ==
--- NOTE | 2022-12-26 13:05 | BI_ITS ---
MAMMOGRAPHY - BILATERAL SCREENING REASON FOR EXAM: Female, 77 years old. Routine annual screening examination. PERTINENT HISTORY: Non-contributory. Bilateral breast prostheses. TECHNIQUE: Digital bilateral breast myron (3D mammographic acquisition) in the CC and MLO projections. 2-D mediolateral oblique (MLO) and craniocaudad (CC) views of both breasts were obtained. CAD: Full Field Digital Mammography with Computer Added Detection was performed. COMPARISON: Comparison is made with prior study dated December 06, 2021 and December 05, 2020. FINDINGS: Breast Composition: The breasts are almost entirely fatty. There are no dominant masses or suspicious calcifications. Stable appearance of the bilateral breast implants. The left breast implant is deformed and is unchanged. No other significant abnormalities are identified. There has been no significant change since the prior study. BI/SCRN MAMM (CAD)W/MYRON BILAT IMPRESSION: Stable bilateral screening mammogram. Yearly follow-up mammogram recommended. (A) ASSESSMENT CATEGORY: BIRADS Category 2: Benign. A letter regarding these results will be sent to the patient by the facility within 30 days. Approximately 10% of breast cancers are not detected by mammography. A normal mammogram should not delay biopsy of a clinically suspicious abnormality. [id number] Electronically Signed: Juwan Morgan MD at 14:00 EST ,
== END | disposition home or self-care (01) ==
LOC: OPBI 13:04
PROVIDERS: PCP Family Medicine; Referring Provider Family Medicine; Visit Provider Family Medicine
DX: Z12.31 Encounter for screening mammogram for malignant neoplasm of breast (principal)
CPT/HCPCS: 77063; 77067

== ENCOUNTER 2023-01-02 14:12 | Outpatient (RCR) | payer MEDICARE, SELFPAY ==
--- NOTE | 2023-01-02 15:31 | HP.PTEVAL_ITS ---
Patient's Visit Information Visit Information Visit Information: GARCIA BENTLEY is a 77 year old F referred to Physical Therapy by Dr. Herve Galeas MD with a diagnosis of LUMBAR DDD. Date of Evaluation: 01/02/23 Physical Therapist: Gail Ballesteros PT, Cert MDT Visit Plan Frequency: 2x /Week Duration: 4-6 Weeks Plan: Neutral Spine Core Stability Exercises and Iglesia LE Hip Flexor, Hamstring and Calf Stretching to help reduce stress to the Lumbar Spine with all Daily Activities. Iglesia LE Strengthening. Instruction in Proper Posture Control, Body Mechanics, and Appropriate Activity Modifications. HEP Instruction. Subjective Subjective: Work/Leisure: RETIRED Present symptoms: LOW BACK AND L HIP PAIN. SOMETIMES R HIP. MAINLY L HIP THOUGH. Present since: SINCE spring Pain Scale: WORST 8/10, LEAST 4/10 Currently: 6/10 Is it getting better, worse or staying the same: GETTING WORSE Commenced as a result of: NO APPARENT REASON Symptoms at onset: L GROIN PAIN Worse: WALKING, STANDING, LYING ON L SIDE, GETTING IN AND OUT OF CAR AND BED, GOING UP AND DOWN STEPS, GETTING INTO SHOWER. Better: TYLONOL, RECLINER, SITTING ON PILLOW, LYING DOWN IN BED Disturbed sleep: NO Previous history/Previous treatment: UNREMARKABLE Treatment this episode: UNREMARKABLE Coughing/sneezing/straining: NEGATIVE Gait: CANE X ABOUT 2 YEARS FOR R KNEE PAIN BUT USES 2 CANES WHEN BACK PAIN IS REALLY BAD. CAN'T USE WALKER IN HOUSE BECAUSE HOUSE IS TOO SMALL. GETS AROUND GROCERY STORE LEANING ON GROCERY CART. Bowel or Bladder Dysfunction: LEAKY BLADDER - PRIOR TO BACK PAIN. Accidents: NO Unexplained weight loss: NO Imaging: NOV 2022 X-RAYS OF PELVIS AND L HIP: MPRESSION: Findings suggestive of bursitis overlying the greater trochanter. DEC 2022 LUMBAR X-RAYS: IMPRESSION: Multilevel degenerative changes with a dextroscoliosis. No demonstrated fracture or instability PMH/Recent major surgery: R KNEE INJECTION 12/31/22 - 1ST OF SERIES OF 3. HTN. H/O R KNEE SURGERY YEARS AGO FOR MENISCUS. Objective Objective: Sitting/Standing Posture: SCOLIOSIS. EXCESSIVE TRUNK FLEXION. ANTERIOR PELVIC TILT. Active Correction of posture: WORSE - INCREASES L LBP Other Observations: THIS PATIENT AMBULATES INDEP'LY INTO PT WITH A STRAIGHT CANE, SLOW TACOS, SHORT IGLESIA STRIDE LENGTH, EXCESSIVE TRUNK FLEXION BUT NO LOB. Sensory deficit: IGLESIA LE LIGHT TOUCH SENSATION GROSSLY INTACT AND SYMMETRICAL ROM deficit: IGLESIA HIP FLEXOR, HS AND GASTROC SOLEUS TIGHTNESS Motor deficit: R LE: HIP 4/5, KNEE EXT 4/5, KNEE FLEX 4/5, ANKLE DF 5/5. L LE: HIP 4-/5, KNEE EXT 4-/5, KNEE FLEX 4-/5, ANKLE DF 5/5. PATIENT C/O ABDOMINAL AND L LBP WITH L HIP AND KNEE STRENGTH TESTING BUT DOES NOT REMAIN WORSE A RESULT. Dural Signs: NEGATIVE IGLESIA LE'S. Lumbar mvmt loss: flex - MIN - MILD INCREASED C/O L LBP ext - LOC - UNABLE TO COME TO NEUTRAL AND C/O INCREASED L LBP WITH ATTEMPTS. R SG - LOC - INCREASED C/O L LBP L SG - LOC - INCREASED C/O L LBP Core strength: POOR Palpation: PATIENT DENIES TENDERNESS WITH PALPATION OF THE LOWER THORACIC, ZACARIAS MBAR AND SACRAL REGIONS AND EVEN INTO THE LUMBAR PARASPINALS BUT IS TENDER IN THE L GREATER TROCH REGION. Balance/Special Test Scores Oswestry Low Back Score: 22 Goals Goal 1:: DECREASE C/O L LOW BACK AND HIP PAIN BY 25% TO EASE ADL'S Goal Time Frame: 4-6 Weeks Goal 2:: IMPROVE BACK OSWESTRY SCORE BY 5 POINTS TO SHOW IMPROVEMENT TOWARDS PLOF Goal Time Frame: 4-6 Weeks Goal 3:: PATIENT WILL REPORT 25% IMPROVEMENT IN STANDING AND WALKING FUNCTION AND NO LONGER NEEDING TO USE 2 CANES. Goal Time Frame: 4-6 Weeks Goal 4:: PATIENT WILL BE INDEP WITH A HEP FOR CONTINUED IMPROVEMENT ONCE FORMAL PHYSICAL THERAPY CONCLUDES. Goal Time Frame: 4-6 Weeks Rehabilitation Potential Physical Therapy Diagnosis: LOW BACK PAIN. TRUNK WEAKNESS AND STIFFNESS. LE WEAKNESS AND STIFFNESS. DIFFICULTY WITH GAIT. Rehabilitation Potential: Good Anticipated Interventions Patient/Client Instruction: Educate patient on: Condition, Plan of Care and Risk Factors For the Purpose of:: To improve self management Therapeutic Exercise to Include: Strength training, Body mechanics, Postural training, Flexibilty training, Gait and locomotor training, Neuromotor development, In an aquatic setting and Dynamic Lumbar Stabilization For the Purpose of:: To decrease pain, To increase ROM, To improve muscle performance and motor function, To increase tolerance to activity/condition/position, To improve ability of physical actions for home/community/work/leisure and To improve gait and locomotor functions Cryotherapy (ice pack, ice massage): Yes Thermo therapy (hot pack): Yes Ultrasound (thermal/non thermal): Yes For the Purpose of:: To decrease pain, To decrease swelling/inflammation and To improve nutrient delivery to tissue Text: Thank you for the opportunity to evaluate your patient. For Medicare and Medicare HMO plans, please review the plan of care and approve it. It will need to be FAXED BACK to us at [phone] for Medicare purposes. For Medicare only, by signing this I certify the plan of care. Please let me know if there are questions or concerns regarding this plan of care. Physician Signature: Date:
== END 2023-01-02 19:00 | disposition home or self-care (01) ==
LOC: PT 14:12
PROVIDERS: PCP Family Medicine; Referring Provider Orthopaedic Surgery Orthopaedic Surgery of the Spine; Visit Provider Orthopaedic Surgery Orthopaedic Surgery of the Spine
DX: M51.36 Other intervertebral disc degeneration, lumbar region (principal)
CPT/HCPCS: 97162

== ENCOUNTER → 2023-02-02 | Outpatient (CLI) | payer MEDICARE, SELFPAY ==
--- NOTE | 2023-02-02 10:30 | MRI_ITS ---
STUDY: MRI LUMBAR SPINE WITHOUT CONTRAST REASON FOR EXAM: Female, 77 years old. Lumbar radiculopathy/scoliosis LBP RADIATING INTO HIPS AND LEFT LEG TECHNIQUE: Standardized fat and water weighted pulse sequences were obtained in the sagittal and axial planes. COMPARISON: X-ray of the lumbar spine dated November 18, 2022 and December 25, 2022 FINDINGS: Normal lumbar lordosis. There is a levoscoliosis of the lumbar spine. Normal conus medullaris that terminates at the L1 level. No marrow edema or fracture or compression deformity is present. No visualized aggressive abnormalities. Rectosigmoid diverticulosis is partially visualized. T12-L1: Moderate asymmetric disc space narrowing with a diffuse disc spur complex. Normal bilateral facet joints. Normal central canal and bilateral lateral recesses. Normal bilateral intervertebral neural foramina. L1-2: Moderate disc space narrowing with posterior annular bulging/diffuse disc spur complex eccentric to the left causing left lateral recess stenosis and impingement on the descending nerve root. Normal central canal and right lateral recess. Mild facet joint hypertrophy. Left foraminal disc protrusion contributes to compression of the exiting nerve root and moderate left foraminal stenosis. Normal right neural foramen. L2-3: Moderate to significant disc space narrowing with a diffuse disc spur complex. Mild Modic endplate degenerative signal and changes. Mild central canal stenosis primarily due to moderate ligament of flavum and facet joint hypertrophy. Mild bilateral foraminal stenosis. L3-4: Moderate to significant disc space narrowing with posterior annular bulging combined with significant facet joint and ligamenta flava hypertrophy causing moderate central canal stenosis and bilateral lateral recess stenosis. Bilateral foraminal disc protrusions result in nerve root compression and moderate bilateral foraminal stenosis. L4-5: Normal endplates. Diffuse disc desiccation with mild disc space narrowing and slight annular bulging. Small Schmorl''s node mild to moderate facet joint hypertrophy on the right. Moderate right foraminal stenosis with nerve root compression. Normal left neural foramen. Normal bilateral facet joints. Normal central canal and bilateral lateral recesses. Normal bilateral intervertebral neural foramina. L5-S1: Normal endplates. Diffuse disc desiccation with mild disc space narrowing and slight annular bulging anteriorly. Mild to moderate facet joint hypertrophy. Normal central canal and bilateral lateral recesses. Normal bilateral intervertebral neural foramina. Normal visualized sacral ala. There is mild paraspinal muscular atrophy. MRI/Spine Lumbar (Routine) IMPRESSION: 1. Multilevel degenerative changes, as described above. 2. Multilevel foraminal stenosis 3. Moderate central canal stenosis at L3-L4 4. Mild central canal stenosis at L2-L3 Electronically Signed: Ham Robins MD at 14:46 EST ,
== END | disposition home or self-care (01) ==
PROVIDERS: PCP Family Medicine; Referring Provider Orthopaedic Surgery Orthopaedic Surgery of the Spine; Visit Provider Orthopaedic Surgery Orthopaedic Surgery of the Spine
DX: M54.16 Radiculopathy, lumbar region (principal)
CPT/HCPCS: 72148

== ENCOUNTER → 2024-01-05 | Outpatient (CLI) | payer MEDICARE, SELFPAY ==
--- NOTE | 2024-01-05 12:50 | BI_ITS ---
MAMMOGRAPHY - BILATERAL SCREENING REASON FOR EXAM: Female, 78 years old. Routine annual screening examination. PERTINENT HISTORY: Non-contributory. Status post bilateral breast reduction and implant placement. TECHNIQUE: Digital bilateral breast myron (3D mammographic acquisition) in the CC and MLO projections. 2-D mediolateral oblique (MLO) and craniocaudad (CC) views of both breasts were obtained. CAD: Full Field Digital Mammography with Computer Added Detection was performed. COMPARISON: Comparison is made with prior study dated December 26, 2022 and December 06, 2021. FINDINGS: Breast Composition: The breasts are almost entirely fatty. There are no dominant masses or suspicious calcifications. Stable appearance of the bilateral breast implants with deformity of the left breast implant. No other significant abnormalities are identified. There has been no significant change since the prior study. BI/SCRN MAMM (CAD)W/MYRON BILAT IMPRESSION: Stable bilateral screening mammogram. Yearly follow-up mammogram recommended. (A) ASSESSMENT CATEGORY: BIRADS Category 2: Benign. A letter regarding these results will be sent to the patient by the facility within 30 days. Approximately 10% of breast cancers are not detected by mammography. A normal mammogram should not delay biopsy of a clinically suspicious abnormality. [id number] Electronically Signed: Juwan Morgan MD at 13:27 EST ,
== END | disposition home or self-care (01) ==
LOC: OPBI 12:50
PROVIDERS: PCP Family Medicine; Referring Provider Nurse Practitioner; Visit Provider Nurse Practitioner
DX: Z12.31 Encounter for screening mammogram for malignant neoplasm of breast (principal)
CPT/HCPCS: 77063; 77067

== ENCOUNTER → 2024-01-19 | Outpatient (CLI) | payer MEDICARE, SELFPAY ==
[2024-01-19 15:19] LABS: Absolute Lymphocyte Count 2.42 X10^3/uL (0.83-4.51); Absolute Neutrophil Count 4.2 X10^3/uL (2.0-7.7); Basophil# 0.05 X10^3/uL; Basophil% 0.7 % (0-1); Eosinophil# 0.14 X10^3/uL; Eosinophils% 1.9 % (0-5); Hemoglobin 10.7 g/dL (12.0-15.0); Lymphocyte # 2.42 X10^3/ul (0.83-4.51); Lymphocyte % 32.6 % (19-41); Mean Corp Hgb Conc 32.4 g/dL (32-36); Mean Corpuscular Hgb 29.9 pg (27.0-32.0); Mean Corpuscular Volume 92.2 fL (81-99); Mean Platelet Vol. 9.7 fl (6.2-12.0); Monocyte# 0.53 X10^3/uL; Monocyte% 7.1 % (0-10); NRBC Flagged by Analyzer 0 % (0-5); Neutrophil # 4.24 X10^3/uL (2.7-7.7); Neutrophil % 57.2 % (47-70); Platelet Count 274 K/mm3 (150-450); RBC Distribution Width CV 13.4 % (11.6-14.6); RBC Distribution Width SD 45.9 fl (35.1-43.9); Red Blood Count 3.58 M/mm3 (4.2-5.4); White Blood Count 7.4 K/mm3 (4.4-11.0)
[2024-01-19 16:14] LABS: ALB/GLOB Ratio 1.1 RATIO (0.9-2.4); AST(SGOT) 25 U/L (15-37); Alanine Aminotransfer ALT/SGPT 22 U/L (13-56); Alkaline Phosphatase 73 U/L (45-117); Anion Gap 6 (5-15); BUN 43 mg/dL (7-18); BUN/Creat Ratio 29.9 RATIO (10-20); Calcium,Total 9.8 mg/dL (8.5-10.1); Chloride 105 mmol/L (98-107); Creatinine, Serum 1.44 mg/dL (0.55-1.02); EST Glomerular Filtration Rate 38 mL/min (>60); Est Glom Filt Rate - Afr Amer 46 mL/min (>60); Globulin 3.8 g/dL (2.2-4.2); Glucose 106 mg/dL (74-106); Potassium 4.9 mmol/L (3.5-5.1); Protein, Total 7.8 g/dL (6.4-8.2); Sodium Level 136 mmol/L (136-145)
== END | disposition home or self-care (01) ==
PROVIDERS: PCP Family Medicine; Referring Provider Family Medicine; Visit Provider Family Medicine
DX: M06.9 Rheumatoid arthritis, unspecified (principal); N18.1 Chronic kidney disease, stage 1
CPT/HCPCS: 36415; 80053; 85025

== ENCOUNTER → 2024-10-06 | Outpatient (CLI) | payer MEDICARE, SELFPAY ==
[2024-10-06 15:29] LABS: Hematocrit 32.2 % (37-47); Hemoglobin 10.6 g/dL (12.0-15.0); Immature Granulocytes Count 0.020 X10^3/uL (0.0-0.0); Mean Corp Hgb Conc 32.9 g/dL (32-36); Mean Corpuscular Volume 92.8 fL (81-99); Mean Platelet Vol. 9.5 fl (6.2-12.0); NRBC Flagged by Analyzer 0 % (0-5); Platelet Count 241 K/mm3 (150-450); RBC Distribution Width CV 13.8 % (11.6-14.6); RBC Distribution Width SD 46.6 fl (35.1-43.9); Red Blood Count 3.47 M/mm3 (4.2-5.4); White Blood Count 6.9 K/mm3 (4.4-11.0)
[2024-10-06 16:22] LABS: AST(SGOT) 24 U/L (<=31); Alanine Aminotransfer ALT/SGPT 17 U/L (<=34); Albumin, Serum 4.3 g/dL (3.4-4.8); Alkaline Phosphatase 65 U/L (35-104); Anion Gap 14 (5-15); BUN 35 mg/dL (4-19); BUN/Creat Ratio 23.3 RATIO (10-20); Calcium,Total 9.6 mg/dL (7.6-11.0); Carbon Dioxide 22.2 mmol/L (21.0-32.0); Chloride 102 mmol/L (98-108); Globulin 2.9 g/dL (2.2-4.2); Glucose 97 mg/dL (70-99); Potassium 4.5 mmol/L (3.3-5.1)
== END | disposition home or self-care (01) ==
LOC: LAB 14:38
PROVIDERS: PCP Family Medicine; Referring Provider Physician Assistant; Visit Provider Physician Assistant
DX: N28.9 Disorder of kidney and ureter, unspecified (principal); I10 Essential (primary) hypertension
CPT/HCPCS: 36415; 80053; 85025

== ENCOUNTER 2024-12-06 16:30 | Outpatient (RCR) | payer MEDICARE, SELFPAY ==
--- NOTE | 2024-10-04 14:25 | HP.PTEVAL_ITS ---
Patient's Visit Information Visit Information Visit Information: GARCIA BENTLEY is a 79 year old F referred to Physical Therapy by Dr. Jonathan Rangel MD with a diagnosis of R knee OA and valgus deformity. Date of Evaluation: 10/04/24 Physical Therapist: Taz Barbosa DPT Visit Plan Frequency: 2x /Week Duration: 4 Weeks Plan: In aquatic settin) BLE strengthening, R knee ROM, dynamic balance and gait progression Pt. was a little apprehensive about aquatic therapy. If she decides that aquatic therapy will not work for her. Add in LE strengthening, R adductor stretching (foam rolling), progressing gait and R knee ROM. Subjective Subjective: Pt. is here today for her initial evaluation with diagnosis of R knee OA and valgus deformity. Pt. reports having R knee pain for the last few years, but has become very painful over the last few months. Pt. reports difficulty with sleeping. Uses a lift chair at home. Pt. walks with two canes fo r balance. Pt. does use the canes throughout her home and in community. Pt. reports some buckling of her knee at times. Pt. has not fallen. Pt. reports getting out of the house 1-2 per week. Pt. did speak with her surgeon whom would like her to lose 20 LBs prior to having a R TKA. She is also having difficulty getting down into the tub. Pt. also has trouble with steps, has to complete with 1 step at a time. Pt. is hopeful to increase her ROM and decrease her pain in order to get back to all recreational and household activities without limitations. Pain R knee: Pain Intensity (Out of 10): 4 Pain Intensity Range: 8 Objective Objective: POSTURE: Pt. has a general flexed posture. Wide ADDY. Pt. is able to stand with improved posture, but difficulty maintaining. Pt. has normal knee extension in stance. Marked valgus of R knee noted. PALPATION: Pt. has mild tenderness along medial joint line. NEURO: Pt. has normal sensation and normal DTR of BLEs. ROM: R knee: 0-0-96deg. L knee 0-0-107deg. MMT: RLE: knee: ext 15.8#, flexion 15.7#; hip: flex 0# (increased pain) LLE: knee: ext 26.8#, flex 19.4#; hip: flexion 17.1# 30sec sit to stand rep test: 14 with use of uEs. GAIT: Pt. ambulates with dual SPCs. Pt. has a general flexed posture with heavy use of canes. Pt. has alight decreased step length bilat. Pain increased with stance phase of RLE. STAIRS: step to pattern with heavy use of BHRs. TU.33sec with bilateral canes. Balance/Special Test Scores Lower Extremity Functional Score: 17 Goals Goal 1:: LTG: Pt. to be I with HEP. Goal Time Frame: 4-6 Weeks Goal 2:: LTG: Pt. to have increased R knee ROM to 0-0-120deg. Goal Time Frame: 4-6 Weeks Goal 3:: LTG: Pt. to complete TUG with time less than 12 seconds. Goal Time Frame: 4-6 Weeks Goal 4:: LTG: Pt. to complete 30sec sit to stand rep test with at least 16 reps. Goal Time Frame: 4-6 Weeks Goal 5:: LTG: Pt. to have symmetrical quad strength. Goal Time Frame: 4-6 Weeks Rehabilitation Potential Physical Therapy Diagnosis: Pt. has signs and symptoms consistent with R knee OA and valgus deformity. Pt. has marked hypomobility of her R knee and weakness throughout BLEs. Pt would benefit from PT to address the above limitations progressing back to all previous levels of activity. Rehabilitation Potential: Good Anticipated Interventions Patient/Client Instruction: Educate patient on: Condition, Plan of Care, Risk Factors and Benefits of Fitness Program For the Purpose of:: To facilitate caregiver knowledge, To improve self management, To prevent re-injury, To improve ability to perform tasks related to life management and To improve tolerance to ADL's Therapeutic Exercise to Include: Strength training, Power training, Endurance training, Balance training, Postural training, Flexibilty training, Gait and locomotor training, "In an aquatic setting", Passive ROM and Active ROM For the Purpose of:: To decrease pain, To decrease swelling/inflammation, To increase ROM, To improve nutrient delivery to tissue, To increase oxygenation perfusion, To improve muscle performance and motor function, To improve ability to perform ADL's, To increase tolerance to activity/condition/position, To improve performance and independence with ADL's, To improve gait and locomotor functions, To improve health of tissue, To decrease soft tissue restriction and To increase flexibility/ROM Text: Thank you for the opportunity to evaluate your patient. For Medicare and Medicare HMO plans, please review the plan of care and approve it. It will need to be FAXED BACK to us at [phone] for Medicare purposes. For Medicare only, by signing this I certify the plan of care. Please let me know if there are questions or concerns regarding this plan of care. Physician Signature: Date:
== END 2024-12-06 19:00 | disposition home or self-care (01) ==
LOC: PT 16:30
PROVIDERS: PCP Family Medicine; Referring Provider Specialist; Visit Provider Specialist
DX: M17.11 Unilateral primary osteoarthritis, right knee (principal)
CPT/HCPCS: 97110; 97161

== ENCOUNTER → 2025-01-26 | Outpatient (CLI) | payer MEDICARE, SELFPAY ==
[2025-01-26 14:26] LABS: Hematocrit 25.6 % (37-47); Hemoglobin 8.4 g/dL (12.0-15.0); Mean Corp Hgb Conc 32.8 g/dL (32-36); Mean Corpuscular Volume 92.4 fL (81-99); Mean Platelet Vol. 9.1 fl (6.2-12.0); Platelet Count 344 K/mm3 (150-450); RBC Distribution Width CV 15.0 % (11.6-14.6); RBC Distribution Width SD 49.9 fl (35.1-43.9); Red Blood Count 2.77 M/mm3 (4.2-5.4); White Blood Count 8.1 K/mm3 (4.4-11.0)
== END | disposition home or self-care (01) ==
LOC: LAB 13:29
PROVIDERS: PCP Family Medicine; Referring Provider Nurse Practitioner Family; Visit Provider Nurse Practitioner Family
DX: D64.9 Anemia, unspecified (principal)
CPT/HCPCS: 36415; 85027

== ENCOUNTER 2025-02-06 15:52 | Emergency (ER) | payer MEDICARE, SELFPAY ==
[2025-02-06 15:55] VITALS: BP 126/59; PULSE 76; RESP 18; TEMP 36.2; O2SAT 98
--- NOTE | 2025-02-06 16:30 | EDS_ITS ---
HPI History of Present Illness Chief Complaint: Lower Extremity Injury Narrative Narrative: Patient is a 79-year-old female with a past medical history of hypertension, rheumatoid arthritis, GERD who presented to the emergency department chief complaint of left knee pain. Patient states that she had her right knee replaced by Dr. Rangel earlier this month. States that yesterday she notes that she was try to move around and felt that she may have tweaked her knee she states that she did not fall causing her pain. States that she has been taking Tylenol for pain control without any relief. States that she called the orthopedic office earlier today and they advised her to come to the ER for an x- ray. States that she is prescribed oxycodone for pain but has not taken any for this either. [facility] Medical History Primary osteoarthritis of right knee Right knee gives way Left hip pain Lumbar degenerative disc disease Diarrhea Gastroenteritis Encounter for screening for COVID-19 Essential (primary) hypertension Rheumatoid arthritis Obesity (BMI 30-39.9) Urinary frequency Depression GERD (gastroesophageal reflux disease) Back pain Difficulty balancing Knee pain Shoulder pain SOB (shortness of breath) Arthritis Home Medications ?Medication ?Instructions ?Recorded ?Last Taken ?Type aspirin 81 mg tablet,delayed 81 mg PO DAILY 01/10/19 U nknown History release krill cap PO DAILY 01/10/19 Unknow n History [id number] 1,500 mg-165 mg-67.5 mg capsule (Krill Oil ([place] 3 and 6)) qunol tumeric PO 01/10/19 Unknown History cholecalciferol (vitamin D3) 125 125 mcg PO DAILY 05/17 05/06 Unknown History mcg (5,000 unit) capsule disability placard #1 ea 01/24/22 Unknown Rx multivitamin (Daily Multi-Vitamin 1 tab PO DAILY 03/20 Unknown History tablet) magnesium 200 mg tablet 200 mg PO QDAY 01/19/24 Unkn own History metoprolol succinate 25 mg 25 mg PO DAILY #90 TABLETS 01/20/24 Unknown Rx tablet,extended release 24 hr lisinopril 20 1 tab PO DAILY #90 TABLETS 0 06/21/24 Unknown Rx mg-hydrochlorothiazide 25 mg tablet coenzyme Q10 10 mg capsule (Co 10 mg PO QDAY 09/16/24 Unknown History Q-10) semaglutide (weight loss) 0.25 0.25 mg (0.5 mL) subcut QWEEK #2 mL 11/23/24 Unknown Rx mg/0.5 mL subcutaneous pen injector (Wegovy) sertraline 100 mg tablet 100 mg PO QDAY #90 tabs 10/10 Unknown Rx ferrous sulfate 325 mg (65 mg 650 mg PO DAILY 02/03/25 Unknown History iron) tablet (Feosol) diclofenac sodium 1 % topical gel 4 g topical Q6H PRN PRN pain #100 02/06/25 Unknown Rx (Voltaren Arthritis Pain) grams Allergy/AdvReac Type Severity Reaction Status Date / Time No Known Allergies Allergy Verified 02/06/25 15:57 Family History Father Kidney disease Myocardial infarction, Onset Age: 68 Mother Cancer female reproductive cancer Surgical History Status post right knee replacement History of left heart catheterization (07/04/19) Normal colonoscopy Hx of hemorrhoidectomy (2001) Hx of cardiac catheterization (2003) History of knee surgery Hx of section History of hysterectomy History of hernia repair Carpal tunnel syndrome Social History Smoking Status: Never smoker alcohol intake: never substance use type: does not use what type of physical activity do you participate in: none ROS ROS ED ROS Narrative Constitutional: Denies any fevers, chills, headaches Eyes: Denies double vision Cardiovascular: Denies chest pain Respiratory: Shortness of breath Neurological: Denies any numbness, weeks, tingling Musculoskeletal: Complains of left knee pain as noted above Skin: Denies any rashes or lesions EXAM Physical Exam Narrative Exam Narrative: General: Patient was sitting in the hallway resting comfortably did not appear to be in acute distress Head: Atraumatic, normocephalic Eyes: PERRL bilaterally, EOMI bilaterally, no conjunctival injection noted Neck: Soft, supple, trachea midline Cardiovascular: Regular rate and rhythm Respiratory: Clear to auscultation bilaterally Abdomen: Soft, nondistended, Musculoskeletal: Patient has full range of motion of her left knee without any significant lateral pain. Patient has mild tenderness palpation over the medial aspect of the left knee Extremities: +4/5 strength noted in the bilateral lower extremities, DP pulses +2/4 in the left lower extremity Neurological: Patient following commands that she was at [facility] year is 2024 sensation grossly intact Skin: No rashes or lesions overlying her left knee Const Vital Signs: 02/06/25 15:55 Temperature 97.2 F L Temperature Source Temporal Pulse Rate 76 Respiratory Rate 18 Blood Pressure 126/59 H Blood Pressure Mean 81 Pulse Ox 98 Oxygen Delivery Method Room Air MDM MDM MDM Narrative Medical decision making narrative: Patient is a 79-year-old female who presented to the emergency department chief complaint of left knee pain. On the differential diagnose includes Melamin to musculoskeletal strain, ligamentous injury, pathological fracture, patella fracture. Once workup is obtained reviewed she will be reevaluated. Patient be given oral Garfield and Zofran. Patient x-ray of her knee reviewed by myself by radiology showed no acute fracture or dislocation she has mild tricompartmental arthrosis noted. I discussed results with the patient and offered her admission for PT OT evaluation for potential placement given her pain and significant difficulty ambulating however she states that she is not doing this and wants to go home at this point time. She will be given a prescription for Voltaren gel and was advised to take her oxycodone that she is already prescribed by her orthopedic surgeon. She is encouraged to follow-up with them in the office setting return with worsening symptoms or concerns. Significant other at bedside is also agreeable Splane all course concerns answered she was discharged home in stable condition. Radiography Diagnostic Testing: Clinical Impression(s) from Imaging Studies Knee X-Ray 02/06/25 16:40 IMPRESSION: No acute fracture or dislocation. Mild tricompartmental arthrosis. Reading Location: [id number] Discharge Plan Triage Chief Complaint: Lower Extremity Injury ED Provider: Bolivar Chin Dx/Rx/DC Orders Clinical Impression: Knee pain, left, S/P total knee arthroplasty, Rheumatoid arthritis Prescriptions: New diclofenac sodium [Voltaren Arthritis Pain] 1 % gel 4 g topical Q6H PRN PRN (Reason: pain ) Qty: 100 0RF No Action Krill Oil ([place] 3 and 6) 1,500-165-67.5 mg capsule PO DAILY qunol tumeric PO aspirin 81 mg tablet,delayed release (DR/EC) 81 mg PO DAILY cholecalciferol (vitamin D3) 125 mcg (5,000 unit) capsule 125 mcg PO DAILY coenzyme Q10 [Co Q-10] 10 mg capsule 10 mg PO QDAY multivitamin [Daily Multi-Vitamin] Tablet 1 tab PO DAILY magnesium 200 mg tablet 200 mg PO QDAY Wegovy 0.25 mg/0.5 mL pen injector 0.25 mg subcut QWEEK Qty: 2 0RF Rx Instructions: administer weeks 1 through 4 of therapy sertraline 100 mg tablet 100 mg PO QDAY Qty: 90 0RF ferrous sulfate [Feosol] 325 mg (65 mg iron) tablet 650 mg PO DAILY (DME) disability placard See Rx Instructions .ROUTE .MEDSUPPLY Qty: 1 0RF Rx Instructions: As directed, Length of time: 5 years metoprolol succinate 25 mg tablet extended release 24 hr 25 mg PO DAILY Qty: 90 2RF lisinopril-hydrochlorothiazide 20-25 mg tablet 1 tab PO DAILY Qty: 90 1RF Primary Care Provider: Fidel Martinez Referrals: Fidel Martinez, DO [Primary Care Provider, Internal Medicine] Activity Restrictions/Additional Instructions: your x-ray did not show acute findings here today. Use prescription as prescribed follow-up with your doctor in the outpatient setting and return with worsening symptoms or other concerns Print Language: Mohawk Disposition Disposition: Home, Self Care
--- NOTE | 2025-02-06 16:40 | RAD_ITS ---
PROCEDURE: LEFT KNEE 4 OR MORE VIEWS 02/06/2025 REASON FOR EXAM: PAIN TECHNIQUE: Procedure Code: RADKN Modality: DX Procedure: KNEE 4 OR MORE VIEWS COMPARISON: None. FINDINGS: No acute fracture or dislocation. Alignment appears anatomic. Mild tricompartmental degenerative arthrosis characterized by joint space narrowing, subchondral sclerosis and marginal osteophytosis. No appreciable joint effusion or soft tissue swelling. RAD/Knee 4 or More Views IMPRESSION: No acute fracture or dislocation. Mild tricompartmental arthrosis. Reading Location: [id number]
[2025-02-06] MEDS: HYDROcodone Bitartrate/Apap 5/325 Tablet PO (16:47)
[2025-02-06 19:32] VITALS: BP 126/59; PULSE 76; RESP 18; TEMP 36.2; O2SAT 98
== END 2025-02-06 19:50 | disposition home or self-care (01) ==
PROVIDERS: Emergency Provider Emergency Medicine; PCP Family Medicine; Visit Provider Emergency Medicine
DX: M25.562 Pain in left knee (principal); M06.9 Rheumatoid arthritis, unspecified; I10 Essential (primary) hypertension; Z90.710 Acquired absence of both cervix and uterus; K21.9 Gastro-esophageal reflux disease without esophagitis; Z79.899 Other long term (current) drug therapy; F32.A Depression, unspecified
CPT/HCPCS: 73564; 99282